=== PATIENT | female | born 1965 | race Caucasian/White ===

== ENCOUNTER 2017-09-04 18:37 | Emergency (ER) | payer MEDICAID ==
[~2017-09-04] VITALS: Ht 154.9 cm; Wt 94.3 kg
[~2017-09-04 18:37] MED LIST: ALBU0.0939
[2017-09-04 18:50] VITALS: BP_SYST 1; BP_SYST 134; BP_DIAS 52
--- NOTE | 2017-09-04 19:19 | NUR ---
PT COMES TO ED C/O LEFT SIDED NUMBNESS FOR 1 WEEK. PT DENIES INJURY. DENIES N/V/DIZZINESS OR SOB. PT IS AXO X4, SMILING AND LAUGHING, MAKING JOKES. PT PLACED ON ALL MONITORS, VSS. EKG IN PROGRESS. MD LEIGH NOTIFIED OF PT STATUS
--- NOTE | 2017-09-04 20:12 | NUR ---
RECEIVED REPORT FROM MARIN NORTH. PT RESTING COMFORTABLY, RR EVEN AND UNLABORED. ALL NEEDS MET.
--- NOTE | 2017-09-04 21:16 | NUR ---
Patient appears to be resting comfortably in bed. Vital Signs within normal limits. Respirations even and unlabored. ALL NEEDS MET AT THIS TIME.
[2017-09-04 22:27] VITALS: BP 134/65
== END 2017-09-04 22:29 | disposition home or self-care (01) ==
LOC: MED 18:37
DX: R07.89 Other chest pain (principal); J45.909 Unspecified asthma, uncomplicated; F17.210 Nicotine dependence, cigarettes, uncomplicated
CPT/HCPCS: 70450; 82948; 99284

== ENCOUNTER 2018-04-09 09:22 | Emergency (ER) | payer MEDICAID ==
[~2018-04-09] VITALS: Ht 160 cm; Wt 92.7 kg
[2018-04-09 09:26] VITALS: BP 140/77
[2018-04-09 10:44] VITALS: BP 145/73
== END 2018-04-09 10:42 | disposition home or self-care (01) ==
LOC: MED 09:22
DX: R07.89 Other chest pain (principal); M62.830 Muscle spasm of back; J45.909 Unspecified asthma, uncomplicated; R03.0 Elevated blood-pressure reading, without diagnosis of hypertension; F17.210 Nicotine dependence, cigarettes, uncomplicated; Z90.49 Acquired absence of other specified parts of digestive tract
CPT/HCPCS: 71045; 81002; 93005; 99284; Q0092

== ENCOUNTER 2018-04-10 16:51 | Emergency (ER) | payer MEDICAID ==
[~2018-04-10] VITALS: Ht 152.4 cm; Wt 92.2 kg
[2018-04-10 17:22] VITALS: BP 144/89
--- NOTE | 2018-04-10 20:21 | NUR ---
52/F CAME IN W C/O GENERALIZED HEADACHE, ANXIETY, SHAKINESS STARTED TODAY. DENIES TRAUMA/INJURY, VISUAL DISTURBANCES, DENIES DIZZINESS/SYNCOPE, FEVER/CHILLS, N/V/D. AOX4, GCS 15. 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 PMH: ASTHMA
--- NOTE | 2018-04-10 20:21 | NUR ---
Pt taken to bed 7.
[2018-04-10] MEDS ORDERED: NACL 0.9% 1,000 ML IV ONE (21:50)
[2018-04-10] MEDS ORDERED: KETOROLAC 30 MG/ML VIAL IVP ONE (21:50)
[2018-04-10] MEDS ORDERED: cefTRIAXone 1,000 MG VIAL ONE (22:13)
[2018-04-10 22:19] LABS: BASOPHILS % (AUTO) 0.6 % (0.0-2.0); EOSINOPHILS # (AUTO) 0.5 K/uL (0-0.4); EOSINOPHILS % (AUTO) 6.3 % (0.0-4.0); HEMATOCRIT 40.6 % (36-48); HEMOGLOBIN 13.2 g/dL (12.0-16.0); LYMPHOCYTES # (AUTO) 2.9 K/uL (2.5-16.5); LYMPHOCYTES % (AUTO) 33.6 % (20.5-51.1); MEAN CORPUSCULAR HEMOGLOBIN 29 pg (27-31); MEAN CORPUSCULAR HGB CONC 33 g/dL (33-37); MEAN CORPUSCULAR VOLUME 90.3 fL (80-94); MONOCYTES # (AUTO) 0.8 K/uL (0.8-1.0); MONOCYTES % (AUTO) 9.8 % (1.7-9.3); NEUTROPHILS # (AUTO) 4.3 K/uL (1.8-7.7); NEUTROPHILS % (AUTO) 49.7 % (42.2-75.2); PLATELET COUNT (AUTO) 281 K/uL (140-450); RED CELL DISTRIBUTION WIDTH 14.4 % (11.6-13.7); WHITE BLOOD COUNT (AUTO) 8.7 K/uL (4.8-10.8)
[2018-04-10 22:23] LABS: APPEARANCE,URINE HAZY (CLEAR); BILIRUBIN,URINE NEGATIVE (NEGATIVE); BLOOD, URINE 2+ (NEGATIVE); COLOR,URINE YELLOW (YELLOW); LEUKOCYTE ESTERASE ,URINE NEGATIVE (NEGATIVE); NITRITE, URINE NEGATIVE (NEGATIVE); UGLUCOSE NEGATIVE (NEGATIVE)
[2018-04-10 22:32] LABS: ANION GAP 12.5 (8-16); CARBON DIOXIDE 26.4 mmol/L (21-32); CREATININE 0.8 mg/dL (0.6-1.3); POTASSIUM 3.9 mmol/L (3.5-5.1)
[2018-04-10 22:38] LABS: ALBUMIN 3.7 g/dL (3.4-5.0); TOTAL BILIRUBIN 0.2 mg/dL (0.0-1.0)
[2018-04-10 22:39] LABS: RBC,URINE 3-10 (FEW) /HPF (0-5)
[2018-04-10 23:52] VITALS: BP 128/71
== END 2018-04-10 23:52 | disposition home or self-care (01) ==
LOC: MED 16:51
DX: N39.0 Urinary tract infection, site not specified (principal); J45.909 Unspecified asthma, uncomplicated; Z79.899 Other long term (current) drug therapy
CPT/HCPCS: 36415; 80053; 81001; 84484; 85025; 87086; 93005; 96365; 96375; 99284; J0696; J1885; 81025; J7030

== ENCOUNTER 2018-05-15 06:30 | Emergency (ER) | payer MEDICAID ==
[~2018-05-15] VITALS: Ht 152.4 cm; Wt 91.6 kg
[2018-05-15 06:45] VITALS: BP 139/42
[2018-05-15] MEDS: diphenhydrAMINE 50 MG/ML VIAL IM ONE (07:26)
[2018-05-15] MEDS: PROCHLORPERAZINE 10 MG/2 ML VIAL IM ONE (07:27)
[2018-05-15 08:39] VITALS: BP 128/68
== END 2018-05-15 08:39 | disposition home or self-care (01) ==
LOC: MED 06:30
DX: G44.209 Tension-type headache, unspecified, not intractable (principal); R11.2 Nausea with vomiting, unspecified; J45.909 Unspecified asthma, uncomplicated; Z79.899 Other long term (current) drug therapy
CPT/HCPCS: 96372; 99283; J0780; J1200

== ENCOUNTER 2018-09-23 16:14 | Emergency (ER) | payer MEDICAID ==
[~2018-09-23] VITALS: Ht 152.4 cm; Wt 94.1 kg
[2018-09-23 16:25] VITALS: BP 123/75
--- NOTE | 2018-09-23 16:30 | NUR ---
53 Y FEMALE BIB SELF C/O LATERAL LT THIGH PAIN X 3 DAYS. PER PT SHE HAD CHRONIC NUMBNESS ON HER LT THIGH X 2 YRS. PAIN /10. HURTS TO TOUCH. DENIES INJURY. AMBULATING TO BED W/O DIFFICULTY. -DEFORMITY. +CMS. VSS AT THIS TIME. AA0X4. PRIMARILY [place] SPEAKING. BED IS DOWN, LOCKED, BED RAILX 1, ERMD TO SEE PT. PMH- CHRONIC PAIN
--- NOTE | 2018-09-23 17:05 | NUR ---
DR ALMENDAREZ AT PT BEDSIDE
[2018-09-23 17:26] VITALS: BP 127/78
--- NOTE | 2018-09-23 17:26 | NUR ---
GABRIELA MARIO TRANSLATED TO [place]ORE[place]. Patient discharged with v/s stable. Written and verbal after care instructions given and explained. Patient alert, oriented and verbalized understanding of instructions. Ambulatory with steady gait. All questions addressed prior to discharge. ID band removed. Patient advised to follow up with PMD. Rx of NAPROXEN, PREDNISONE given. Patient educated on indication of medication including possible reaction and side effects. Opportunity to ask questions provided and answered. REFERED TO [facility].
== END 2018-09-23 17:26 | disposition home or self-care (01) ==
LOC: MED 16:14
DX: M54.32 Sciatica, left side (principal); M54.10 Radiculopathy, site unspecified; Z79.899 Other long term (current) drug therapy
CPT/HCPCS: 81025; 99283

== ENCOUNTER 2018-09-30 17:35 | Emergency (ER) | payer MEDICAID ==
[~2018-09-30] VITALS: Ht 152.4 cm; Wt 93.9 kg
[2018-09-30 17:40] VITALS: BP 139/97
--- NOTE | 2018-09-30 17:47 | NUR ---
PATIENT AMBULATED TO BED 7 AT THIS TIME.
--- NOTE | 2018-09-30 17:50 | NUR ---
53/F C/O AGATA THIGH PAIN X 5 DAYS. WAS SEEN BY [facility] ER MD 5 DAYS AGO WITH PREDNISOLONE PRESCRIPTION. PAIN 10 AT THIS TIME. DENIES PMH. PATIENT POSITIONED FOR COMFORT; HOB ELEVATED; BEDRAILS UP X1; BED DOWN. ER MD MADE AWARE OF PT STATUS.
[2018-09-30] MEDS ORDERED: KETOROLAC 30 MG/ML VIAL IM ONE (18:40)
--- NOTE | 2018-09-30 19:13 | NUR ---
Pt report given to KYLIE FUNES. Transfer of care at this time.
--- NOTE | 2018-09-30 19:13 | NUR ---
RECEIVED REPORT FROM MARIN DRIVER.
[2018-09-30 19:50] VITALS: BP 133/88
--- NOTE | 2018-09-30 19:50 | NUR ---
Patient discharged with v/s stable. Written and verbal after care instructions given and explained. Patient alert, oriented and verbalized understanding of instructions. Ambulatory with steady gait. All questions addressed prior to discharge. ID band removed. Patient advised to follow up with PMD. Rx of GABAPENTIN given. Patient educated on indication of medication including possible reaction and side effects. Opportunity to ask questions provided and answered.
== END 2018-09-30 19:50 | disposition home or self-care (01) ==
LOC: MED 17:35
DX: G62.9 Polyneuropathy, unspecified (principal); R07.89 Other chest pain; M51.36 Other intervertebral disc degeneration, lumbar region; Z79.899 Other long term (current) drug therapy
CPT/HCPCS: 72131; 93005; 96372; 99284; J1885

== ENCOUNTER 2018-10-07 16:20 | Emergency (ER) | payer MEDICAID ==
[~2018-10-07] VITALS: Ht 152.4 cm; Wt 95.3 kg
[2018-10-07 16:46] VITALS: BP 132/80
--- NOTE | 2018-10-07 17:00 | NUR ---
C/O INTERMITTENET LLQ PAIN 5/10 STARTING TODAY. PER PT, AFTER EATING BREAKFAST, THE PAIN STARTED. PT REPORTS HERNIA SURGERY 15 YEARS AGO TO THE AREA THAT IS CAUSING PAIN NOW. DENIES N/V/D; SKIN IS PINK/WARM/DRY; AAOX4 WITH EVEN AND STEADY GAIT; LUNGS CLEAR BL; HR EVEN AND REGULAR; PT DENIES ANY FEVER, CP, SOB, OR COUGH AT THIS TIME; VSS; PATIENT POSITIONED FOR COMFORT; HOB ELEVATED; BEDRAILS UP X1; BED DOWN. ER MD MADE AWARE OF PT STATUS. DAUGHTER IS AT BEDSIDE.
[2018-10-07 18:09] VITALS: BP 148/77
--- NOTE | 2018-10-07 18:11 | NUR ---
Patient discharged with v/s stable. Written and verbal after care instructions given and explained. Patient alert, oriented and verbalized understanding of instructions. Ambulatory with steady gait. All questions addressed prior to discharge. Patient advised to follow up with PMD. Rx of Dolores given. Patient educated on indication of medication including possible reaction and side effects. Opportunity to ask questions provided and answered.
== END 2018-10-07 18:11 | disposition home or self-care (01) ==
LOC: MED 16:20
DX: G62.9 Polyneuropathy, unspecified (principal); F17.210 Nicotine dependence, cigarettes, uncomplicated; Z79.899 Other long term (current) drug therapy
CPT/HCPCS: 99283

== ENCOUNTER 2018-12-29 15:49 | Emergency (ER) | payer MEDICAID ==
[~2018-12-29] VITALS: Ht 152.4 cm; Wt 95.3 kg
[2018-12-29 15:55] VITALS: BP 144/79
--- NOTE | 2018-12-29 16:05 | NUR ---
PT TRIAGED, SENT BACK TO LOBBY AWAITING BED
--- NOTE | 2018-12-29 16:16 | NUR ---
PATIENT AMBULATED TO BED 4 AT THIS TIME.
--- NOTE | 2018-12-29 16:30 | NUR ---
Note timothy in EDM - 12/29/18 at 1733 by [email or web address] C/O GENERALIZED ABD PAIN /10 AND LOWER BACK ACHING X 1 WEEK. PT DENIES VOMITING/DIARRHEA/DYSURIA. LBM TODAY- REGULAR PER PT. ABDOMEN SOFT/FLAT TENDER TO PALPATION. BED IN LOW POSITION, SIDE RAIL UP X1
--- NOTE | 2018-12-29 16:30 | NUR ---
C/O GENERALIZED ABD PAIN 8/10 AND LOWER BACK ACHING X 1 WEEK. PT DENIES VOMITING/DIARRHEA/DYSURIA. LBM TODAY- REGULAR PER PT. ABDOMEN SOFT/FLAT TENDER TO PALPATION. BOWEL SOUNDS PRESENT X1. SMALL LUNB FELT NEAR UMBILICAL REGION. BED IN LOW POSITION, SIDE RAIL UP X1
[2018-12-29] MEDS ORDERED: KETOROLAC 60 MG/2 ML VIAL IM ONE (16:35)
[2018-12-29] MEDS ORDERED: FAMOTIDINE 20 MG TAB PO ONE (16:35)
[2018-12-29] MEDS ORDERED: ALUMINUM HYD/MAG/SIMETHICONE 30 ML UDC PO ONE (16:35)
[2018-12-29 17:08] LABS: BASOPHILS % (AUTO) 0.5 % (0.0-2.0); EOSINOPHILS # (AUTO) 0.3 K/uL (0-0.4); EOSINOPHILS % (AUTO) 3.3 % (0.0-4.0); HEMOGLOBIN 12.7 g/dL (12.0-16.0); LYMPHOCYTES # (AUTO) 2.3 K/uL (2.5-16.5); LYMPHOCYTES % (AUTO) 26.9 % (20.5-51.1); MEAN CORPUSCULAR HEMOGLOBIN 30 pg (27-31); MEAN CORPUSCULAR HGB CONC 34 g/dL (33-37); MEAN CORPUSCULAR VOLUME 88.9 fL (80-94); MONOCYTES # (AUTO) 0.9 K/uL (0.8-1.0); MONOCYTES % (AUTO) 10.6 % (1.7-9.3); NEUTROPHILS # (AUTO) 5.1 K/uL (1.8-7.7); NEUTROPHILS % (AUTO) 58.7 % (42.2-75.2); PLATELET COUNT (AUTO) 251 K/uL (140-450); RED BLOOD CELL COUNT(AUTO) 4.27 MIL/uL (4.20-5.40); RED CELL DISTRIBUTION WIDTH 13.9 % (11.6-13.7); WHITE BLOOD COUNT (AUTO) 8.6 K/uL (4.8-10.8)
[2018-12-29 17:27] LABS: ANION GAP 14.3 (8-16); CARBON DIOXIDE 24.5 mmol/L (21-32); CREATININE 1.1 mg/dL (0.6-1.3); POTASSIUM 3.8 mmol/L (3.5-5.1)
[2018-12-29 17:39] LABS: ALBUMIN 3.5 g/dL (3.4-5.0); TOTAL BILIRUBIN 0.3 mg/dL (0.0-1.0)
[2018-12-29 18:35] VITALS: BP 124/74
--- NOTE | 2018-12-29 18:35 | NUR ---
Patient discharged with v/s stable. Written and verbal after care instructions given and explained. Patient alert, oriented and verbalized understanding of instructions. Ambulatory with steady gait. All questions addressed prior to discharge. ID band removed. Patient advised to follow up with PMD. Rx of ZOFRAN ODT, OMEPRAZOLE given. Patient educated on indication of medication including possible reaction and side effects. Opportunity to ask questions provided and answered.
== END 2018-12-29 18:35 | disposition home or self-care (01) ==
LOC: MED 15:49
DX: K29.70 Gastritis, unspecified, without bleeding (principal); F17.210 Nicotine dependence, cigarettes, uncomplicated; Z90.49 Acquired absence of other specified parts of digestive tract; Z98.890 Other specified postprocedural states; Z79.899 Other long term (current) drug therapy
CPT/HCPCS: 36415; 80053; 81025; 83690; 84484; 85025; 93005; 96372; 99284; J1885

== ENCOUNTER 2019-03-12 14:58 | Emergency (ER) | payer MEDICAID ==
[~2019-03-12] VITALS: Ht 152.4 cm; Wt 95.7 kg
[2019-03-12 15:06] VITALS: BP 134/79
[2019-03-12] MEDS ORDERED: SUMAtriptan 25 MG TAB PO ONE (15:25)
[2019-03-12] MEDS ORDERED: PROCHLORPERAZINE 10 MG/2 ML VIAL IVP ONE (16:05)
[2019-03-12] MEDS ORDERED: KETOROLAC 30 MG/ML VIAL IVP ONE (16:05)
[2019-03-12 17:01] VITALS: BP 134/79
== END 2019-03-12 17:02 | disposition home or self-care (01) ==
LOC: MED 14:58
DX: R51 Headache (principal); N64.4 Mastodynia; I10 Essential (primary) hypertension; Z79.899 Other long term (current) drug therapy
CPT/HCPCS: 70450; 96374; 96375; 99284; J0780; J1885

== ENCOUNTER 2019-04-25 16:31 | Emergency (ER) | payer MEDICAID ==
[~2019-04-25] VITALS: Ht 152.4 cm; Wt 93.9 kg
[2019-04-25 16:40] VITALS: BP 105/64
--- NOTE | 2019-04-25 16:45 | NUR ---
WAIT AT LOBBY.
--- NOTE | 2019-04-25 17:23 | NUR ---
PT AMBULATED TO ER BED 07
--- NOTE | 2019-04-25 17:43 | NUR ---
53/F C/O DIZZINESS & EPIGASTRIC/UMBILICAL/RT SIDED ABD PAIN X 1 MONTH WORSENING OVER LAST 1 WK. DENIES F/C, N/V. STATES BAD BREATH, ABD BLOATING, CONSTIPATION/HARD STOOLS OVER LAST 1 MONTH. LBM TODAY, HARD STOOL. ABD LARGE, ACTIVE BS. MED HX: ASTHMA, GERD
--- NOTE | 2019-04-25 18:01 | NUR ---
KEILA MILLS AT BEDSIDE
[2019-04-25] MEDS ORDERED: KETOROLAC 60 MG/2 ML VIAL IM ONE (18:15)
[2019-04-25] MEDS ORDERED: ALUMINUM HYD/MAG/SIMETHICONE 30 ML, DICYCLOMINE HCL LIQUID 20 MG, LIDOCAINE VISCOUS 2% ... PO ONE ×3 (18:15)
[2019-04-25] MEDS ORDERED: LIDOCAINE VISCOUS 2% 20 ML UDC ONE (18:31)
[2019-04-25] MEDS ORDERED: ALUMINUM HYD/MAG/SIMETHICONE 30 ML UDC ONE (18:32)
[2019-04-25] MEDS ORDERED: DICYCLOMINE HCL LIQUID 10 MG/5 ML UDC ONE (18:32)
--- NOTE | 2019-04-25 19:04 | NUR ---
report to Lola Roberts, transfer of care at this time.
--- NOTE | 2019-04-25 19:05 | NUR ---
RECIVED REPORT FROM YESSENIA FUNES.
--- NOTE | 2019-04-25 19:09 | NUR ---
XRAY AT BEDSIDE
--- NOTE | 2019-04-25 19:13 | NUR ---
LAB AT BEDSIDE.
--- NOTE | 2019-04-25 19:14 | NUR ---
PT AXO X4. RESPITATIONS ARE EVEN AND UNLABORED. SMIN IS WASRM AND DRY TO TOUCH. PT HAS C/O 2/10 ABD PAIN IN EPIGASTRIC, UMBILICAL, AND RLQ. PT C/O FEELING BLOATED AND HAVING CONSTIPATION X1 MONTH. PT STATES SHE HAD HER LAST BOWEL MOVEMENT 04/25/19. PT STATES IT WAS SMALL, HARD, AND NORMAL IN COLOR. PT DENIES N/V/D. ABD SOUND PRESENT X 4. PT RESTING IN BED, BED IN LOWEST POSITION AND LOCKED IN PLACE. WILL CONTINUE TO [facility].
[2019-04-25 19:38] LABS: BASOPHILS # (AUTO) 0.1 K/uL (0.00-0.22); EOSINOPHILS # (AUTO) 0.5 K/uL (0-0.4); EOSINOPHILS % (AUTO) 6.5 % (0.0-4.0); HEMATOCRIT 37.1 % (36-48); HEMOGLOBIN 12.4 g/dL (12.0-16.0); LYMPHOCYTES # (AUTO) 2.7 K/uL (2.5-16.5); LYMPHOCYTES % (AUTO) 36.3 % (20.5-51.1); MEAN CORPUSCULAR HEMOGLOBIN 30 pg (27-31); MEAN CORPUSCULAR HGB CONC 33 g/dL (33-37); MEAN CORPUSCULAR VOLUME 91.1 fL (80-94); MONOCYTES # (AUTO) 0.8 K/uL (0.8-1.0); MONOCYTES % (AUTO) 10.3 % (1.7-9.3); NEUTROPHILS # (AUTO) 3.4 K/uL (1.8-7.7); NEUTROPHILS % (AUTO) 45.9 % (42.2-75.2); PLATELET COUNT (AUTO) 246 K/uL (140-450); RED BLOOD CELL COUNT(AUTO) 4.07 MIL/uL (4.20-5.40); RED CELL DISTRIBUTION WIDTH 13.9 % (11.6-13.7); WHITE BLOOD COUNT (AUTO) 7.5 K/uL (4.8-10.8)
[2019-04-25 20:19] LABS: CARBON DIOXIDE 25.7 mmol/L (21-32); CREATININE 0.9 mg/dL (0.6-1.3); POTASSIUM 3.7 mmol/L (3.5-5.1)
[2019-04-25 20:22] LABS: ALBUMIN 3.5 g/dL (3.4-5.0); TOTAL BILIRUBIN 0.1 mg/dL (0.0-1.0)
[2019-04-25 20:35] LABS: APPEARANCE,URINE CLEAR (CLEAR); BILIRUBIN,URINE NEGATIVE (NEGATIVE); BLOOD, URINE 2+ (NEGATIVE); COLOR,URINE YELLOW (YELLOW); LEUKOCYTE ESTERASE ,URINE NEGATIVE (NEGATIVE); NITRITE, URINE NEGATIVE (NEGATIVE); UGLUCOSE NEGATIVE (NEGATIVE)
--- NOTE | 2019-04-25 20:42 | NUR ---
PT RESTING IN BED POSITIONED FOR COMFORT. DENIES ABD PAIN/N/V/D. RR EVEN AND UNLABORED. BED LOCKED AND IN LOW POSITION. VSS. WILL CONTINUE TO MONITOR.
[2019-04-25 20:47] VITALS: BP 123/59
--- NOTE | 2019-04-25 20:48 | NUR ---
Patient discharged with v/s stable. Written and verbal after care instructions given and explained. Patient alert, oriented and verbalized understanding of instructions. Ambulatory with steady gait. All questions addressed prior to discharge. ID band removed. Patient advised to follow up with PMD. Rx of ZOFRAN, PEPCID, AND BENTYL given. Patient educated on indication of medication including possible reaction and side effects. Opportunity to ask questions provided and answered.
[2019-04-25 20:52] LABS: WBC,URINE 0-5 /HPF (0-5)
== END 2019-04-25 20:48 | disposition home or self-care (01) ==
LOC: MED 16:31
DX: R10.13 Epigastric pain (principal); R11.0 Nausea; F17.210 Nicotine dependence, cigarettes, uncomplicated; Z90.49 Acquired absence of other specified parts of digestive tract; Z79.899 Other long term (current) drug therapy
CPT/HCPCS: 36415; 74018; 80053; 81001; 83690; 85025; 96372; 99284; J1885; Q0092

== ENCOUNTER 2019-09-01 21:07 | Inpatient (IN) | payer MEDICAID ==
[~2019-09-01] VITALS: Ht 152.4 cm; Wt 93.0 kg
[2019-09-01 21:10] VITALS: BP 114/71
--- NOTE | 2019-09-01 21:12 | NUR ---
PT TAKEN TO BED 11
--- NOTE | 2019-09-01 21:15 | NUR ---
PT AMBULATED TO BED 11, STEADY GAIT.
--- NOTE | 2019-09-01 21:16 | NUR ---
54 YO F BIB SELF FOR C/C OF 8/10 LEFT CHEST PAIN THAT BEGAN THIS AFTERNOON AT 2PM AFTER WORK. PT STATES THAT HER LEFT ARM AND LEFT LEG IS "NUMB AND TINGELING." PT DESCRIBES HER CHEST PAIN A TIGHT/PRESSURE. PT SAYS SHE TOOK IBUPROFEN FOR THE PAIN BUT EXPERIENCED NO RELIEF OF SYMPTOMS. S1S2 HEARD. LUNG SOUNDS CLEAR THROUGHOUT. LEFT RADIAL PULSE IS WEAK COMPARED TO RIGHT RADIAL PULSE THAT IS REGULAR. PEDAL PULSES EQUAL AND REGULAR. CAP REFILL <3. NO EDEMA NOTED. PT DENIES N/V/D, TRAVEL, COUGH, OR SOB. VSS. PATIENT PLACED ON BANQUET HOUSEPERSON. BED LOCKED AND IN LOWEST POSITION. SIDE RAILS X1. MED HX: ASTHMA NO RX NKA
--- NOTE | 2019-09-01 21:17 | NUR ---
PT PLACED ON 3 LEAD ECG AND PULSE OX.
--- NOTE | 2019-09-01 21:19 | NUR ---
Dr. Snow examining patient.
--- NOTE | 2019-09-01 21:24 | NUR ---
EKG BEING PERFORMED AT BEDSIDE
[2019-09-01] MEDS ORDERED: KETOROLAC 30 MG/ML VIAL IM/IVP ONE (21:25)
--- NOTE | 2019-09-01 21:35 | NUR ---
LAB AT BEDSIDE. IV STARTED. PT TOLERATED WELL. LABS DRAWN AND SENT TO LAB.
--- NOTE | 2019-09-01 21:47 | NUR ---
XR AT BEDSIDE.
[2019-09-01 21:54] LABS: BASOPHILS # (AUTO) 0.1 K/uL (0.00-0.22); BASOPHILS % (AUTO) 0.7 % (0.0-2.0); EOSINOPHILS # (AUTO) 0.6 K/uL (0-0.4); EOSINOPHILS % (AUTO) 7.2 % (0.0-4.0); HEMATOCRIT 36.2 % (36-48); HEMOGLOBIN 12.2 g/dL (12.0-16.0); LYMPHOCYTES # (AUTO) 2.7 K/uL (2.5-16.5); LYMPHOCYTES % (AUTO) 30.3 % (20.5-51.1); MEAN CORPUSCULAR HEMOGLOBIN 30 pg (27-31); MEAN CORPUSCULAR HGB CONC 34 g/dL (33-37); MEAN CORPUSCULAR VOLUME 89.5 fL (80-94); MONOCYTES # (AUTO) 0.8 K/uL (0.8-1.0); MONOCYTES % (AUTO) 9.4 % (1.7-9.3); NEUTROPHILS # (AUTO) 4.7 K/uL (1.8-7.7); NEUTROPHILS % (AUTO) 52.4 % (42.2-75.2); PLATELET COUNT (AUTO) 258 K/uL (140-450); RED BLOOD CELL COUNT(AUTO) 4.05 MIL/uL (4.20-5.40); RED CELL DISTRIBUTION WIDTH 13.9 % (11.6-13.7); WHITE BLOOD COUNT (AUTO) 8.9 K/uL (4.8-10.8)
[2019-09-01 22:26] LABS: ALBUMIN 3.6 g/dL (3.4-5.0); ANION GAP 11.1 (8-16); CARBON DIOXIDE 28.5 mmol/L (21-32); CREATININE 0.9 mg/dL (0.6-1.3); POTASSIUM 3.6 mmol/L (3.5-5.1); TOTAL BILIRUBIN 0.3 mg/dL (0.0-1.0)
[2019-09-01] MEDS ORDERED: ASPIRIN 81 MG TAB.CHEW PO ONE (23:00)
[2019-09-01] MEDS ORDERED: ACETAMINOPHEN 325 MG TAB PO PRN (23:15)
[2019-09-01] MEDS ORDERED: HYDROcodone/APAP 7.5/325 MG 1 TAB PO PRN (23:15)
[2019-09-01] MEDS ORDERED: ONDANSETRON 4 MG/2 ML VIAL IVP PRN (23:15)
[2019-09-01] MEDS ORDERED: NITROGLYCERIN 0.4 MG TAB SL PRN (23:15)
--- NOTE | 2019-09-01 23:15 | NUR ---
PT RESTING IN BED COMFORTBALY. EQUAL RISE AND FALL OF CHEST. CHEST PAIN CURRENTLY 09/04. ERMD MADE AWARE. SAFETY MEASURES IN PLACE.
--- NOTE | 2019-09-01 23:28 | NUR ---
Dr. Martins examining patient.
--- NOTE | 2019-09-01 23:34 | NUR ---
MD SAENZ AT BEDSIDE
[2019-09-01 23:56] LABS: MAGNESIUM 1.8 mg/dL (1.8-2.4); PHOSPHORUS 3.7 mg/dL (2.5-4.9); THYROID STIMULATING HORMONE 1.38 uIU/mL (0.34-3.74)
[2019-09-02 00:01] LABS: PROTHROMBIN TIME 9.1 secs (10.8-13.4)
[2019-09-02 00:10] VITALS: BP 151/62
--- NOTE | 2019-09-02 00:10 | NUR ---
RECEIVED PT FROM ER NURSE. PT CAME IN [facility] AND ABLE TO AMBULATE TO [facility] BED. NO SOB NOTED. PT BREATHING EVEN AND UNLABORED. IV SITE ON RAC 20G, PATENT, INTACT, AND ASYMPTOMATIC. SKIN INTACT, WARM AND DRY TO TOUCH. MRSA SWAB DONE, VS CHECKED, WITHIN PT'S BASELINE. PT C/P 6/10 CHEST PAIN. WILL MEDICATE. BOARD UPDATED. ORIENTED ROOM TO PT. BED IN LOW POSITION, CALL LIGHT WITHIN REACH.
--- NOTE | 2019-09-02 00:10 | NUR ---
Patient will be admitted to care of [facility]. Admited to TELE. Will go to room 106B. Belongings list completed. Report to MARIAM FUNES.
[2019-09-02] MEDS: NACL 0.9% 1,000 ML IV SCH ×2 (00:20→21:27)
--- NOTE | 2019-09-02 00:32 | NUR ---
GIVEN NORCO FOR CHEST PAIN 10/05. PT TOLERATED WELL.
[2019-09-02 01:40] LABS: APPEARANCE,URINE CLEAR (CLEAR); BILIRUBIN,URINE NEGATIVE (NEGATIVE); BLOOD, URINE 1+ (NEGATIVE); COLOR,URINE YELLOW (YELLOW); LEUKOCYTE ESTERASE ,URINE NEGATIVE (NEGATIVE); NITRITE, URINE NEGATIVE (NEGATIVE); PH,URINE 5.5 (5.0-9.0); UGLUCOSE NEGATIVE (NEGATIVE)
[2019-09-02 01:50] LABS: BARBITURATE, URINE NEGATIVE ng/ml (NEG <=200); BENZODIAZEPINE, URINE NEGATIVE ng/mL (NEG <=200); COCAINE, URINE NEGATIVE ng/mL (NEG <=300)
[2019-09-02 01:51] LABS: CANNABINOID, URINE NEGATIVE ng/mL (NEG <=50); OPIATE, URINE NEGATIVE ng/mL (NEG <=2000); PHENCYCLIDINE SCREEN,URINE NEGATIVE ng/mL (NEG <=25)
[2019-09-02 01:59] LABS: WBC,URINE 0-5 /HPF (0-5)
--- NOTE | 2019-09-02 02:16 | NUR ---
PT SLEEPING IN BED COMFORTABLY. NO ACUTE DISTRESS NOTED.
[2019-09-02 04:00] VITALS: BP 105/47
--- NOTE | 2019-09-02 04:00 | NUR ---
VS CHECKED, WITHIN PT'S BASELINE. WILL CONTINUE TO MONITOR.
--- NOTE | 2019-09-02 06:50 | NUR ---
PT IN STABLE CONDITION. WILL ENDORSE PT TO DAY SHIFT NURSE FOR CONTINUOUS CARE.
[2019-09-02 07:13] LABS: BASOPHILS # (AUTO) 0.1 K/uL (0.00-0.22); BASOPHILS % (AUTO) 1.2 % (0.0-2.0); EOSINOPHILS # (AUTO) 0.8 K/uL (0-0.4); EOSINOPHILS % (AUTO) 11.5 % (0.0-4.0); HEMATOCRIT 35.1 % (36-48); HEMOGLOBIN 11.9 g/dL (12.0-16.0); LYMPHOCYTES # (AUTO) 2.5 K/uL (2.5-16.5); LYMPHOCYTES % (AUTO) 38.7 % (20.5-51.1); MEAN CORPUSCULAR HEMOGLOBIN 31 pg (27-31); MEAN CORPUSCULAR HGB CONC 34 g/dL (33-37); MEAN CORPUSCULAR VOLUME 90.1 fL (80-94); MONOCYTES # (AUTO) 0.7 K/uL (0.8-1.0); MONOCYTES % (AUTO) 10.5 % (1.7-9.3); NEUTROPHILS # (AUTO) 2.5 K/uL (1.8-7.7); NEUTROPHILS % (AUTO) 38.1 % (42.2-75.2); PLATELET COUNT (AUTO) 231 K/uL (140-450); RED CELL DISTRIBUTION WIDTH 13.9 % (11.6-13.7); WHITE BLOOD COUNT (AUTO) 6.6 K/uL (4.8-10.8)
--- NOTE | 2019-09-02 07:15 | NUR ---
RECEIVED REPORT FROM LAWN CARE PROFESSIONAL NURSE FOR CONTINUITY OF CARE. PT IS LYING IN BED SLEEPING, RT LATERAL. AROUSABLE TO VOICE. A&OX4. LAC 20G IV IS PATENT AND INTACT, AND RUNNING PER ORDERS. RESPIRATIONS ARE EVEN AND UNLABORED, BREATHING TO RA. REVIEWED PLAN OF CARE. TELE MONITOR ATTACHED. SAFETY MEASURES IN PLACE, CALL LIGHT WITHIN REACH, BED IN LOW POSITION. NO DISTRESS NOTED. WILL CONTINUE TO MONITOR.
[2019-09-02 08:00] VITALS: BP 110/60
[2019-09-02 08:27] LABS: CHOL/HDL RATIO 4.5 (1-4.5); MAGNESIUM 1.7 mg/dL (1.8-2.4); PHOSPHORUS 3.2 mg/dL (2.5-4.9)
[2019-09-02 08:35] LABS: ANION GAP 10.7 (8-16); CREATININE 0.9 mg/dL (0.6-1.3); POTASSIUM 3.7 mmol/L (3.5-5.1)
--- NOTE | 2019-09-02 08:55 | NUR ---
PATIENT HAS BEEN SCREENED AND CATEGORIZED MODERATE NUTRITION RISK. PATIENT WILL BE SEEN WITHIN 3-5 DAYS OF ADMISSION. 09/05/19 09/07/[address]
[2019-09-02] MEDS: METOPROLOL 25 MG TAB PO SCH ×2 (09:00→21:00)
--- NOTE | 2019-09-02 09:00 | NUR ---
DC PLANNIN YRS OLD FEMALE PATIENT WAS ADMITTED FROM HOME WITH A DX OF CHEST PAIN R/O ACS. PT HAS NO MEDICAL HISTORY. EKG SHOWED NO ACUTE ABNORMALITY SB 51 ,TROP NEGATIVE X2 AND PENDING THE 3RD , CXR SHOWED PROMINENT PULMONARY VASCULARITY. ECHO PENDING , CONTINUE HOME MEDS ADMINISTERED PAIN MEDS , CONSULT WITH MULTIMEDIA DESIGNER. DC PLAN TO GO HOME WHEN STABLE CM TO FOLLOW. Addendum: 09/03/19 at 1546 by Gale Gay CM ON ROOM AIR. CURRENT LABS INCLUDE WBC 6.3, H/H 11.8/35.6, NA/K 144/4.0, BUN/CREA 14/1.0. FOR HOMAR SCAN TODAY, IF CLEAR MAY DC.
[2019-09-02] MEDS: DOCUSATE SODIUM 100 MG GELCAP PO SCH ×2 (09:55→21:28)
[2019-09-02] MEDS: ASPIRIN 81 MG TAB.CHEW PO SCH (09:55)
[2019-09-02] MEDS: FAMOTIDINE 20 MG TAB PO SCH (09:56)
[2019-09-02] MEDS: LISINOPRIL 5 MG TAB PO SCH (10:03)
--- NOTE | 2019-09-02 10:09 | NUR ---
SCHEDULED MEDICATIONS GIVEN. BP CHECKED; BP: 110/60; HR: 57. RESIDENT INFORMED. PER THE DR, SCHEDULED LOPRESSOR HELD. MEDICATION EDUCATION PROVIDED IN DANISH, WITH PT VERBALIZING UNDERSTANDING. PT TOLERATED PO MEDS WELL. NO DISTRESS NOTED. SAFETY MEASURES IN PLACE. WILL CONTINUE TO MONITOR.
--- NOTE | 2019-09-02 10:33 | NUR ---
PT COMPLAINS OF LEFT EAR PAIN, RESIDENT IS AWARE. WILL CONTINUE TO MONITOR.
[2019-09-02 12:00] VITALS: BP 97/60
--- NOTE | 2019-09-02 15:03 | NUR ---
RESIDENT IS AT BEDSIDE SPEAKING WITH PT. NO DISTRESS NOTED. TELE MONITOR ATTACHED. WILL CONTINUE TO MONITOR.
[2019-09-02] MEDS ORDERED: REGADENOSON 0.4 MG/5 ML SYR IV ONE (15:35)
[2019-09-02 16:00] VITALS: BP 97/60
[2019-09-02] MEDS ORDERED: LORazepam 0.5 MG TAB PO PRN (16:25)
[2019-09-02] MEDS ORDERED: MAGNESIUM OXIDE 400 MG TAB PO SCH (16:38)
--- NOTE | 2019-09-02 17:12 | NUR ---
SCHEDULED MEDICATION GIVEN. PT COMPLAINS OF ANXIETY; PRN ATIVAN GIVEN. MEDICATION EDUCATION PROVIDED. WILL CONTINUE TO MONITOR.
--- NOTE | 2019-09-02 17:40 | NUR ---
RECEIVED A CALL FROM BRIANNA, FROM [facility]. PER BRIANNA, THE PT IS SCHEDULED FOR A STRESS TEST TOMORROW; NO MORE CAFFEINE SHOULD BE CONSUMED, AND PT SHOULD BE NPO AFTER BREAKFAST TOMORROW. BRIANNA SHOULD BE IN AROUND 12 PM, AND DR BISHOP IS EXPECTED TO BE IN AROUND 2 PM.
--- NOTE | 2019-09-02 19:36 | NUR ---
RECEIVED REPORT FROM LAUNCH MANAGER NURSE FOR CONTINUITY OF CARE. PT IS LYING IN BED SLEEPING, RT LATERAL. AROUSABLE TO VOICE. A&OX4. LAC 20G IV IS PATENT AND INTACT, AND RUNNING PER ORDERS. RESPIRATIONS ARE EVEN AND UNLABORED, BREATHING TO RA. REVIEWED PLAN OF CARE. TELE MONITOR ATTACHED. SAFETY MEASURES IN PLACE, CALL LIGHT WITHIN REACH, BED IN LOW POSITION. NO DISTRESS NOTED. WILL CONTINUE TO MONITOR.
--- NOTE | 2019-09-02 19:36 | NUR ---
ENDORSED TO AUTOMOTIVE QUALITY ENGINEER NURSE FOR CONTINUITY OF CARE. PT IS IN STABLE CONDITION.
[2019-09-02 20:00] VITALS: BP 99/40
[2019-09-02] MEDS ORDERED: ATORVASTATIN 20 MG TAB PO SCH (21:00)
--- NOTE | 2019-09-02 21:23 | NUR ---
METOPROLOL NOT GIVEN BECAUSE PT;S BP 44/40 MMHG AND HR= 60 ( HOLD FOR SBP LESS THAN 100; HR LESS THAN 600
--- NOTE | 2019-09-02 22:30 | NUR ---
PT LYING PRONE POSITION, HEART RATE FROM MONITOR 33 BPM, CHECKED ON PATIENT, AND PT WAS LYING ON HER TUMMY THAT THE GEOTECHNICAL OPERATING ENGINEER WAS PRESSED DOWN TO THE BED. EDUCATION GIVEN TO THE PATIENT.
[2019-09-03] VITALS: BP 93/51
--- NOTE | 2019-09-03 00:01 | NUR ---
AGAIN, PATIENT WAS ASLLEPP AND HEART RATE READING IN THE PROFESSOR OF POLITICAL SCIENCE WAS 40'S , WENT TO THE PATIENT AND PATIENT WAS SLEEPING AGAIN ON HER TUMMY, PT MADE AWARE, AND WENT TO SLEEPING RIGHT LATERAL, MONITOR READING WENT BACK TO NORMAL.
--- NOTE | 2019-09-03 01:35 | NUR ---
CHECKED ON PATIENT SLEEPING WELL, NO COMPLAINTS OF PAIN, NO RESPIRATORY DISTRESS WILL CONTINUE TO MONITOR
[2019-09-03 04:00] VITALS: BP 99/55
[2019-09-03 06:20] LABS: BASOPHILS % (AUTO) 0.5 % (0.0-2.0); EOSINOPHILS # (AUTO) 0.8 K/uL (0-0.4); EOSINOPHILS % (AUTO) 12.1 % (0.0-4.0); HEMATOCRIT 35.6 % (36-48); HEMOGLOBIN 11.8 g/dL (12.0-16.0); LYMPHOCYTES # (AUTO) 2.5 K/uL (2.5-16.5); LYMPHOCYTES % (AUTO) 39.6 % (20.5-51.1); MEAN CORPUSCULAR HEMOGLOBIN 30 pg (27-31); MEAN CORPUSCULAR HGB CONC 33 g/dL (33-37); MEAN CORPUSCULAR VOLUME 90.9 fL (80-94); MONOCYTES # (AUTO) 0.6 K/uL (0.8-1.0); MONOCYTES % (AUTO) 9.4 % (1.7-9.3); NEUTROPHILS # (AUTO) 2.4 K/uL (1.8-7.7); NEUTROPHILS % (AUTO) 38.4 % (42.2-75.2); PLATELET COUNT (AUTO) 233 K/uL (140-450); RED BLOOD CELL COUNT(AUTO) 3.92 MIL/uL (4.20-5.40); RED CELL DISTRIBUTION WIDTH 14.1 % (11.6-13.7); WHITE BLOOD COUNT (AUTO) 6.3 K/uL (4.8-10.8)
[2019-09-03 06:46] LABS: ANION GAP 8.7 (8-16); CARBON DIOXIDE 29.3 mmol/L (21-32)
[2019-09-03] MEDS ORDERED: BUS5 PO (07:14)
--- NOTE | 2019-09-03 07:15 | NUR ---
PATIENT INFORMED AGAIN NOT TO SLEEP ON THE SNUFF BOX FINISHER, BECAUSE HER HEART RATE, DIPPING DOWN. PT IS ASYMPTOMATIC.
--- NOTE | 2019-09-03 07:19 | NUR ---
RECEIVED REPORT FROM PROFESSIONAL FIGHTER NURSE FOR CONTINUITY OF CARE. PT IS A&OX4; LYING IN BED RESTING, RT LATERAL, AROUSABLE TO VOICE. LAC 2OG IV IS PATENT AND INTACT. RESPIRATIONS ARE EVEN AND UNLABORED, BREATHING TO RA. REVIEWED PLAN OF CARE WITH PATIENT. TELE MONITOR ATTACHED. SAFETY MEASURES IN PLACE, CALL LIGHT WITHIN REACH, BED IN LOW POSITION. NO DISTRESS NOTED. WILL CONTINUE TO MONITOR.
--- NOTE | 2019-09-03 07:57 | NUR ---
RECEIVED A CALL FROM BRIANNA FROM [employer]. PER BRIANNA, THE PT IS TO BE NPO AFTER BREAKFAST, AND IS TO HAVE NO COFFEE OR CAFFEINE. PT'S STRESS TEST IS SCHEDULED FOR TODAY. THE PT'S DECAF COFFEE WAS REMOVED FROM THE BREAKFAST TRAY. PT IS RESTING IN BED. NO DISTRESS NOTED. WILL CONTINUE TO MONITOR.
[2019-09-03 08:00] VITALS: BP 115/44
[2019-09-03] MEDS: LISINOPRIL 5 MG TAB PO SCH (09:00)
--- NOTE | 2019-09-03 09:36 | NUR ---
PT'S RT AC IV INFILTRATED. ER NURSE STARTED NEW IV; LAC 20 G. IV IS PATENT AND INTACT; FLUIDS RUNNING, PER ORDERS. SAFETY MEASURES IN PLACE. TELE MONITOR ATTACHED. WILL CONTINUE TO MONITOR.
[2019-09-03] MEDS: ASPIRIN 81 MG TAB.CHEW PO SCH (10:57)
[2019-09-03] MEDS: DOCUSATE SODIUM 100 MG GELCAP PO SCH (10:58)
[2019-09-03] MEDS: FAMOTIDINE 20 MG TAB PO SCH (10:58)
--- NOTE | 2019-09-03 11:00 | NUR ---
PT'S SCHEDULED MEDICATIONS GIVEN. MEDICATION EDUCATION PROVIDED IN HUNGARIAN. PT TOLERATED PO MEDS WELL. BP MEDS HELD DUE TO PT'S IMPENDING STRESS TEST TODAY. BP: 114/51; PULSE: 51. NO DISTRESS NOTED. TELE MONITOR ATTACHED. WILL CONTINUE TO MONITOR.
[2019-09-03 12:00] VITALS: BP 114/51
--- NOTE | 2019-09-03 12:43 | NUR ---
BRIANNA FROM [facility] WHEELED THE PT OFF OF THE UNIT IN A WHEELCHAIR, TO TAKE HER TO PERFORM THE STRESS TEST.
[2019-09-03] MEDS ORDERED: REGADENOSON 0.4 MG/5 ML SYR IV SCH (13:40)
[2019-09-03] MEDS: NACL 0.9% 1,000 ML IV SCH (15:12)
[2019-09-03 16:00] VITALS: BP 115/44
[2019-09-03] MEDS ORDERED: busPIRone 5 MG TAB PO SCH (16:00)
--- NOTE | 2019-09-03 16:31 | NUR ---
PT COMPLAINS OF ANXIETY. ORDERED BUSPAR GIVEN ONCE. PER RESIDENT DR, THE PT IS TO BE DISCHARGED TODAY. NO ACUTE DISTRESS NOTED.
--- NOTE | 2019-09-03 17:55 | NUR ---
DISCHARGE INSTRUCTIONS WERE GIVEN AND EXPLAINED WITH THE PT VERBALIZING UNDERSTANDING. PT'S ARM BANDS, THE TELE MONITOR, AND IV REMOVED, WITH CATHETER INTACT. PT'S BELONGINGS IN HER POSSESSION, ALONG WITH DISCHARGE PACKET. PT STATED THAT HER CAR IS IN THE PARKING LOT, AND SHE WILL DRIVE HERSELF HOME. SHE IS AMBULATORY, AND IN STABLE CONDITION. PT ESCORTED OUT TO LOBBY.
[2019-09-04] MEDS ORDERED: BUS5 PO (11:09)
== END 2019-09-03 17:55 | disposition home or self-care (01) | DRG 198 ==
LOC: MED 21:07 → MTU 23:12
PROVIDERS: ADMIT General Practice; ATTEND General Practice
DX: I24.9 Acute ischemic heart disease, unspecified (principal); E66.01 Morbid (severe) obesity due to excess calories; F41.9 Anxiety disorder, unspecified; Z68.41 Body mass index [BMI] 40.0-44.9, adult; E83.42 Hypomagnesemia; I10 Essential (primary) hypertension
CPT/HCPCS: 36415; 71045; 80048; 80053; 80305; 81001; 83036; 83690; 83735; 83880; 84100; 84443; 84484; 85025; 85610; 85730; 87081; 87086; 93005; 93017; 96374; 99285; A9500; A9502; J1644; J1885; J2785; J7030; Q0092

== ENCOUNTER 2020-02-23 11:40 | Emergency (ER) | payer MEDICAID ==
[~2020-02-23] VITALS: Ht 152.4 cm; Wt 94.3 kg
[~2020-02-23 11:40] MED LIST changes: +BUS5 PO
[2020-02-23 11:42] VITALS: BP 151/70
--- NOTE | 2020-02-23 12:01 | NUR ---
PATIENT PRESENTS TO ED WITH C/O HEADACHE X 3 DAYS . DENIES N/V/D; SKIN IS PINK/WARM/DRY; AAOX4 WITH EVEN AND STEADY GAIT; LUNGS CLEAR BL; HR EVEN AND REGULAR; PT DENIES ANY FEVER, CP, SOB, OR COUGH AT THIS TIME; PATIENT STATES PAIN OF 8/10 AT THIS TIME; VSS; PATIENT POSITIONED FOR COMFORT; HOB ELEVATED; BEDRAILS UP X2; BED DOWN. ER MD MADE AWARE OF PT STATUS. DENIES PHOTOPHOBIA
[2020-02-23] MEDS ORDERED: KETOROLAC 60 MG/2 ML VIAL IM ONE (12:35)
--- NOTE | 2020-02-23 13:10 | NUR ---
SWAB COLLECTED AND SENT TO LAB.
[2020-02-23 13:26] VITALS: BP 150/90
--- NOTE | 2020-02-23 13:26 | NUR ---
Patient discharged with v/s stable. Written and verbal after care instructions given and explained. Patient alert, oriented and verbalized understanding of instructions. Ambulatory with steady gait. All questions addressed prior to discharge. ID band removed. Patient advised to follow up with PMD. Rx of Naprosyn 500mg given. Patient educated on indication of medication including possible reaction and side effects. Work excuse provided up until 02/26/2020. Work excuse states patient cannot return to work until receiving Covid test results. Pt provided with number to hospital to call to obtain results in 48-72 hours. Opportunity to ask questions provided and answered.
== END 2020-02-23 13:26 | disposition home or self-care (01) ==
LOC: MED 11:40
DX: G44.209 Tension-type headache, unspecified, not intractable (principal); J45.909 Unspecified asthma, uncomplicated; Z20.828 Contact with and (suspected) exposure to other viral communicable diseases; Z79.899 Other long term (current) drug therapy
CPT/HCPCS: 81002; 81025; 96372; 99283; J1885; U0003

== ENCOUNTER 2020-10-08 16:58 | Emergency (ER) | payer MEDICAID ==
[~2020-10-08] VITALS: Ht 152.4 cm; Wt 95.3 kg
[2020-10-08 17:16] VITALS: BP 155/73
[2020-10-08] MEDS ORDERED: KETOROLAC 30 MG/ML VIAL IM ONE (18:00)
[2020-10-08] MEDS ORDERED: METH750T5 PO (18:12)
[2020-10-08] MEDS ORDERED: NAPR-54 PO (18:12)
[2020-10-08 19:16] VITALS: BP 155/73
== END 2020-10-08 19:16 | disposition home or self-care (01) ==
LOC: MED 16:58
DX: M54.5 Low back pain (principal); J45.909 Unspecified asthma, uncomplicated; Z79.899 Other long term (current) drug therapy
CPT/HCPCS: 81002; 96372; 99283; J1885

== ENCOUNTER 2020-11-07 17:46 | Emergency (ER) | payer MEDICAID ==
[~2020-11-07] VITALS: Ht 152.4 cm; Wt 95.3 kg
[~2020-11-07 17:46] MED LIST changes: +METH750T5 PO; +NAPR-54 PO
[2020-11-07 17:48] VITALS: BP 143/74
--- NOTE | 2020-11-07 17:57 | NUR ---
PASTORA. HANDED ON URINE CUP.
--- NOTE | 2020-11-07 18:43 | NUR ---
PT AMBLULATED TO BED 9
--- NOTE | 2020-11-07 18:57 | NUR ---
Dr. Walters is evaluating the patient at bedside.
--- NOTE | 2020-11-07 19:16 | NUR ---
AMBULATED WITH ASSIST TO ED #9, 55 Y/O FEMALE, HX OF CHRONIC BACK AND RIGHT KNEE PAIN, THINKS SHE PULLED HER BACK AT WORK, OTHERWISE NO OTHER KNOWN INJURY. WOKE THIS MORNING WITH SEVERE EXACERBATION OF LOW BACK AND RIGHT KNEE PAIN. HX OF THYROID DISORDER. DISTAL CMS INTACT, DENIES INCONTINENCE OF BOWEL OR BLADDER. BED LOW AND LOCKED, DR. PARIS FOR EXAM AND EVAL.
--- NOTE | 2020-11-07 19:17 | NUR ---
CARE ENDORSED TO SHOAIB FUNES
[2020-11-07] MEDS ORDERED: KETOROLAC 30 MG/ML VIAL IM ONE (19:25)
[2020-11-07] MEDS ORDERED: DEXAMETHASONE 10 MG/ML VIAL IM ONE (19:25)
--- NOTE | 2020-11-07 20:14 | NUR ---
PAIN LEVEL DECREASED. 07/05.
--- NOTE | 2020-11-07 20:46 | NUR ---
PT TAKEN TO XR VIA W/C.
--- NOTE | 2020-11-07 21:01 | NUR ---
PT RETURNED BACK FROM XR VIA W/C.
[2020-11-07] MEDS ORDERED: LIDO5CRE19 TP (22:35)
[2020-11-07 22:48] VITALS: BP 141/64
--- NOTE | 2020-11-07 22:48 | NUR ---
Patient discharged with v/s stable. Written and verbal after care instructions given and explained. Patient alert, oriented and verbalized understanding of instructions. Ambulatory with steady gait. All questions addressed prior to discharge. ID band removed. Patient advised to follow up with PMD. Rx of LIDOCAINE given. Patient educated on indication of medication including possible reaction and side effects. Opportunity to ask questions provided and answered.
== END 2020-11-07 22:48 | disposition home or self-care (01) ==
LOC: MED 17:46
DX: L03.90 Cellulitis, unspecified (principal); M54.5 Low back pain; M25.561 Pain in right knee; E07.9 Disorder of thyroid, unspecified; F17.200 Nicotine dependence, unspecified, uncomplicated; Z76.0 Encounter for issue of repeat prescription; Z79.899 Other long term (current) drug therapy
CPT/HCPCS: 73564; 81002; 96372; 99284; J1100; J1885

== ENCOUNTER 2020-11-26 23:18 | Emergency (ER) | payer MEDICAID, OTHER ==
[~2020-11-26] VITALS: Ht 152.4 cm; Wt 95.3 kg
[~2020-11-26 23:18] MED LIST changes: +LIDO5CRE19 TP
[2020-11-26 23:35] VITALS: BP_SYST 131; BP_SYST 153; BP_DIAS 83; BP_DIAS 90
--- NOTE | 2020-11-26 23:38 | NUR ---
TO LOBBY A/W BED AMBULATORY
[2020-11-27 00:19] LABS: BASOPHILS # (AUTO) 0.1 K/uL (0.00-0.22); BASOPHILS % (AUTO) 0.6 % (0.0-2.0); EOSINOPHILS # (AUTO) 0.3 K/uL (0-0.4); EOSINOPHILS % (AUTO) 3.2 % (0.0-4.0); HEMATOCRIT 37.9 % (36-48); HEMOGLOBIN 12.8 g/dL (12.0-16.0); LYMPHOCYTES # (AUTO) 2.1 K/uL (2.5-16.5); LYMPHOCYTES % (AUTO) 22.2 % (20.5-51.1); MEAN CORPUSCULAR HEMOGLOBIN 31 pg (27-31); MEAN CORPUSCULAR HGB CONC 34 g/dL (33-37); MEAN CORPUSCULAR VOLUME 90.6 fL (80-94); MONOCYTES # (AUTO) 0.8 K/uL (0.8-1.0); MONOCYTES % (AUTO) 8.2 % (1.7-9.3); NEUTROPHILS # (AUTO) 6.3 K/uL (1.8-7.7); NEUTROPHILS % (AUTO) 65.8 % (42.2-75.2); PLATELET COUNT (AUTO) 268 K/uL (140-450); RED BLOOD CELL COUNT(AUTO) 4.19 MIL/uL (4.20-5.40); RED CELL DISTRIBUTION WIDTH 14.1 % (11.6-13.7); WHITE BLOOD COUNT (AUTO) 9.5 K/uL (4.8-10.8)
[2020-11-27 00:38] LABS: ALBUMIN 3.5 g/dL (3.4-5.0); ANION GAP 15.8 (8-16); CARBON DIOXIDE 25.9 mmol/L (21-32); CREATININE 0.9 mg/dL (0.6-1.3); POTASSIUM 3.7 mmol/L (3.5-5.1); TOTAL BILIRUBIN 0.2 mg/dL (0.0-1.0)
--- NOTE | 2020-11-27 02:32 | NUR ---
To ED bed 11
[2020-11-27] MEDS ORDERED: KETOROLAC 60 MG/2 ML VIAL IM ONE (03:20)
[2020-11-27] MEDS ORDERED: IBUP-2213 PO (03:29)
[2020-11-27] MEDS ORDERED: OMEP40EC24 PO (03:29)
[2020-11-27] MEDS ORDERED: ONDA8TAB87 PO (03:29)
[2020-11-27 03:32] VITALS: BP 117/72
--- NOTE | 2020-11-27 03:33 | NUR ---
d/c withVSS. d/c education given. opportunity toask questions given and answered. rx of prilosec, motrin, and zofran given.
== END 2020-11-27 03:36 | disposition home or self-care (01) ==
LOC: MED 23:18
DX: R11.2 Nausea with vomiting, unspecified (principal); R10.13 Epigastric pain
CPT/HCPCS: 36415; 80053; 81002; 81025; 83690; 85025; 96372; 99283; J1885

== ENCOUNTER 2020-12-10 22:22 | Emergency (ER) | payer MEDICAID ==
[~2020-12-10] VITALS: Ht 152.4 cm; Wt 95.3 kg
[~2020-12-10 22:22] MED LIST changes: +IBUP-2213 PO; +OMEP40EC24 PO; +ONDA8TAB87 PO
[2020-12-10 22:42] VITALS: BP 140/57
--- NOTE | 2020-12-11 00:01 | NUR ---
PT AMBULATED TO BED #5
--- NOTE | 2020-12-11 00:15 | NUR ---
55 YO/F BIB SELF W COMPLAIN OF PRESSURE LIKE CHEST AND UPPER BACK DISCOMFORT WHEN BREATHING X2 HOURS AND FEELING TIRED. DENIES PAIN REPORTS 0/10 AND SAYS ITS NOT PAIN ITS DISCOMFORT. PATIENT DENIES FEVERS, N/V/D OR DIZZYNESS. PATIENT CONNECTED TO MONITOR W VSS. BREATHING EVEN AND UNLABORED, NAD NOTED. WILL CONTINUE TO MONITOR. PATIENT LAYING IN BED LOCKED IN LOWEST POSITION, X1 SIDERAIL UP. PMH:HYPERTHYROIDSIM NKA
[2020-12-11 00:43] LABS: ALBUMIN 3.3 g/dL (3.4-5.0); ANION GAP 11.9 (8-16); CARBON DIOXIDE 27.4 mmol/L (21-32); POTASSIUM 3.3 mmol/L (3.5-5.1); TOTAL BILIRUBIN 0.1 mg/dL (0.0-1.0)
[2020-12-11] MEDS ORDERED: POTASSIUM CHLORIDE 10 MEQ TABER PO ONE (01:05)
[2020-12-11 01:15] LABS: BASOPHILS # (AUTO) 0.1 K/uL (0.00-0.22); BASOPHILS % (AUTO) 0.6 % (0.0-2.0); EOSINOPHILS # (AUTO) 0.2 K/uL (0-0.4); EOSINOPHILS % (AUTO) 1.5 % (0.0-4.0); HEMATOCRIT 36.5 % (36-48); HEMOGLOBIN 12.3 g/dL (12.0-16.0); LYMPHOCYTES # (AUTO) 3.2 K/uL (2.5-16.5); LYMPHOCYTES % (AUTO) 30.7 % (20.5-51.1); MEAN CORPUSCULAR HEMOGLOBIN 31 pg (27-31); MEAN CORPUSCULAR HGB CONC 34 g/dL (33-37); MEAN CORPUSCULAR VOLUME 90.9 fL (80-94); MONOCYTES # (AUTO) 1.1 K/uL (0.8-1.0); MONOCYTES % (AUTO) 10.4 % (1.7-9.3); NEUTROPHILS # (AUTO) 5.9 K/uL (1.8-7.7); NEUTROPHILS % (AUTO) 56.8 % (42.2-75.2); PLATELET COUNT (AUTO) 252 K/uL (140-450); RED BLOOD CELL COUNT(AUTO) 4.01 MIL/uL (4.20-5.40); RED CELL DISTRIBUTION WIDTH 14.1 % (11.6-13.7); WHITE BLOOD COUNT (AUTO) 10.4 K/uL (4.8-10.8)
[2020-12-11 02:21] VITALS: BP 127/62
--- NOTE | 2020-12-11 02:21 | NUR ---
Patient discharged with v/s stable. Written and verbal after care instructions given and explained. Patient verbalized understanding. Ambulatory with steady gait. All questions addressed prior to discharge. Advised to follow up with PMD.
== END 2020-12-11 02:21 | disposition home or self-care (01) ==
LOC: MED 22:22
DX: R07.2 Precordial pain (principal); F17.210 Nicotine dependence, cigarettes, uncomplicated; E07.9 Disorder of thyroid, unspecified; Z79.899 Other long term (current) drug therapy; Z71.6 Tobacco abuse counseling
CPT/HCPCS: 36415; 71045; 80053; 83880; 84484; 85025; 93005; 99285

== ENCOUNTER 2021-01-12 10:58 | Emergency (ER) | payer MEDICAID ==
[~2021-01-12] VITALS: Ht 152.4 cm; Wt 95.3 kg
[2021-01-12 11:04] VITALS: BP 125/76
--- NOTE | 2021-01-12 11:10 | NUR ---
PATIENT SENT TO LOBBY TO WAIT FOR AVAILABLE BED.
[2021-01-12 11:38] LABS: BASOPHILS % (AUTO) 0.5 % (0.0-2.0); EOSINOPHILS # (AUTO) 0.2 K/uL (0-0.4); EOSINOPHILS % (AUTO) 2.4 % (0.0-4.0); HEMATOCRIT 39.8 % (36-48); HEMOGLOBIN 13.2 g/dL (12.0-16.0); LYMPHOCYTES # (AUTO) 1.6 K/uL (2.5-16.5); LYMPHOCYTES % (AUTO) 19.5 % (20.5-51.1); MEAN CORPUSCULAR HEMOGLOBIN 31 pg (27-31); MEAN CORPUSCULAR HGB CONC 33 g/dL (33-37); MONOCYTES # (AUTO) 0.5 K/uL (0.8-1.0); MONOCYTES % (AUTO) 6.1 % (1.7-9.3); NEUTROPHILS % (AUTO) 71.5 % (42.2-75.2); PLATELET COUNT (AUTO) 272 K/uL (140-450); RED BLOOD CELL COUNT(AUTO) 4.33 MIL/uL (4.20-5.40); RED CELL DISTRIBUTION WIDTH 14.4 % (11.6-13.7); WHITE BLOOD COUNT (AUTO) 8.3 K/uL (4.8-10.8)
[2021-01-12 12:00] LABS: ALBUMIN 3.6 g/dL (3.4-5.0); ANION GAP 12.1 (8-16); CARBON DIOXIDE 26.7 mmol/L (21-32); POTASSIUM 3.8 mmol/L (3.5-5.1); TOTAL BILIRUBIN 0.2 mg/dL (0.0-1.0)
--- NOTE | 2021-01-12 14:01 | NUR ---
UA sample collected, handed to CPT. Debra
[2021-01-12 14:13] LABS: APPEARANCE,URINE CLEAR (CLEAR); BILIRUBIN,URINE NEGATIVE (NEGATIVE); BLOOD, URINE 2+ (NEGATIVE); COLOR,URINE YELLOW (YELLOW); LEUKOCYTE ESTERASE ,URINE NEGATIVE (NEGATIVE); NITRITE, URINE NEGATIVE (NEGATIVE); UGLUCOSE NEGATIVE (NEGATIVE)
[2021-01-12 14:39] LABS: RBC,URINE 11-20 (MOD) /HPF (0-5); WBC,URINE 0-5 /HPF (0-5)
[2021-01-12] MEDS ORDERED: CEFP200T20 PO (14:51)
[2021-01-12 15:08] VITALS: BP 147/93
--- NOTE | 2021-01-12 15:08 | NUR ---
NO NURSING INTERVENTIONS PROVIDED
--- NOTE | 2021-01-12 15:09 | NUR ---
Patient discharged with v/s stable. Written and verbal after care instructions given and explained. Patient alert, oriented and verbalized understanding of instructions. Ambulatory with steady gait. All questions addressed prior to discharge. ID band removed. Patient advised to follow up with PMD. Rx of CEFPODOXIME PROXETIL given. Patient educated on indication of medication including possible reaction and side effects. Opportunity to ask questions provided and answered.
== END 2021-01-12 15:09 | disposition home or self-care (01) ==
LOC: MED 10:58
DX: N39.0 Urinary tract infection, site not specified (principal); E07.9 Disorder of thyroid, unspecified; Z79.899 Other long term (current) drug therapy
CPT/HCPCS: 36415; 80053; 81001; 83690; 84703; 85025; 99284

== ENCOUNTER 2021-01-21 14:50 | Emergency (ER) | payer MEDICAID ==
[~2021-01-21] VITALS: Ht 152.4 cm; Wt 94.3 kg
[~2021-01-21 14:50] MED LIST changes: +CEFP200T20 PO
[2021-01-21 14:51] VITALS: BP 137/83
--- NOTE | 2021-01-21 14:55 | NUR ---
Patient ambulated to bed 06 with steady/even gait
--- NOTE | 2021-01-21 15:02 | NUR ---
Pt to restroom for urine sample
--- NOTE | 2021-01-21 15:05 | NUR ---
55 y/o F BIB self from home c/o abdominal pain x 1 week. Patient A&Ox4 and ambulatory states RUQ, epigastric pain 10/10, cramping/intermittent, radiating to low back. Patient states associated chills, nausea, weakness. Patient reports seen here one week ago, diagnosed with UTI and discharged with ABX without relief to symptoms. Patient denies fever, chest pain, vomiting, diarrhea, constipation, dysuria, urinary symptoms. Pt placed into a gown and UA collected. Bed locked in lowest position, side rails x 1. PMH: hyperthyroidism Sx: cholecystectomy Meds: Ibuprofen NKA
--- NOTE | 2021-01-21 15:05 | NUR ---
Dr. Contreras is evaluating patient at bedside
[2021-01-21 15:18] LABS: BASOPHILS # (AUTO) 0.1 K/uL (0.00-0.22); BASOPHILS % (AUTO) 0.8 % (0.0-2.0); EOSINOPHILS # (AUTO) 0.3 K/uL (0-0.4); EOSINOPHILS % (AUTO) 3.9 % (0.0-4.0); HEMATOCRIT 40.6 % (36-48); HEMOGLOBIN 13.6 g/dL (12.0-16.0); LYMPHOCYTES # (AUTO) 2.3 K/uL (2.5-16.5); MEAN CORPUSCULAR HEMOGLOBIN 31 pg (27-31); MEAN CORPUSCULAR HGB CONC 34 g/dL (33-37); MEAN CORPUSCULAR VOLUME 91.2 fL (80-94); MONOCYTES # (AUTO) 0.7 K/uL (0.8-1.0); MONOCYTES % (AUTO) 9.9 % (1.7-9.3); NEUTROPHILS # (AUTO) 3.9 K/uL (1.8-7.7); NEUTROPHILS % (AUTO) 53.4 % (42.2-75.2); PLATELET COUNT (AUTO) 278 K/uL (140-450); RED BLOOD CELL COUNT(AUTO) 4.45 MIL/uL (4.20-5.40); WHITE BLOOD COUNT (AUTO) 7.3 K/uL (4.8-10.8)
[2021-01-21 15:20] LABS: APPEARANCE,URINE CLEAR (CLEAR); BILIRUBIN,URINE NEGATIVE (NEGATIVE); BLOOD, URINE 2+ (NEGATIVE); COLOR,URINE YELLOW (YELLOW); LEUKOCYTE ESTERASE ,URINE NEGATIVE (NEGATIVE); NITRITE, URINE NEGATIVE (NEGATIVE); UGLUCOSE NEGATIVE (NEGATIVE)
[2021-01-21] MEDS ORDERED: DICYCLOMINE 10 MG CAP PO ONE (15:20)
[2021-01-21] MEDS ORDERED: ACETAMINOPHEN EXTRA STRENGTH 500 MG TAB PO ONE (15:20)
[2021-01-21] MEDS ORDERED: ALUMINUM HYD/MAG/SIMETHICONE 30 ML UDC PO ONE (15:20)
[2021-01-21] MEDS ORDERED: FAMOTIDINE 20 MG/2 ML VIAL IVP ONE (15:20)
[2021-01-21 15:25] LABS: RBC,URINE 11-20 (MOD) /HPF (0-5); WBC,URINE 0-5 /HPF (0-5)
[2021-01-21 15:29] LABS: ALBUMIN 3.8 g/dL (3.4-5.0); ANION GAP 13.8 (8-16); CARBON DIOXIDE 26.6 mmol/L (21-32); CREATININE 1.1 mg/dL (0.6-1.3); POTASSIUM 4.4 mmol/L (3.5-5.1); TOTAL BILIRUBIN 0.1 mg/dL (0.0-1.0)
--- NOTE | 2021-01-21 16:03 | NUR ---
Patient presents with both eyes closed resting in semi-fowlers position. Patient awaken for pain reassessment; reports positive relief to pain; rates 6/10 at this time. Denies nausea. All pt needs met.
[2021-01-21] MEDS ORDERED: ALUM355S59 PO (16:18)
[2021-01-21] MEDS ORDERED: FAMO-90 PO (16:18)
--- NOTE | 2021-01-21 16:33 | NUR ---
Patient discharged with v/s stable. Written and verbal after care instructions given and explained. Patient alert, oriented and verbalized understanding of instructions. Ambulatory with steady gait. All questions addressed prior to discharge. ID band removed. Patient advised to follow up with PMD. Rx of Mag Hydrox/Al Hydrox/Simeth, Famotidine given. Patient educated on indication of medication including possible reaction and side effects. Opportunity to ask questions provided and answered.
[2021-01-21 16:38] VITALS: BP 109/57
== END 2021-01-21 16:33 | disposition home or self-care (01) ==
LOC: MED 14:50
DX: K29.70 Gastritis, unspecified, without bleeding (principal)
CPT/HCPCS: 36415; 80053; 81001; 83690; 85025; 93005; 96374; 99284; J3490

== ENCOUNTER 2021-02-01 18:18 | Emergency (ER) | payer MEDICAID ==
[~2021-02-01] VITALS: Ht 152.4 cm; Wt 95.3 kg
[~2021-02-01 18:18] MED LIST changes: +ALUM355S59 PO; +FAMO-90 PO
[2021-02-01 18:27] VITALS: BP 170/98
--- NOTE | 2021-02-01 18:41 | NUR ---
PT TAKEN TO ER BED 9.
--- NOTE | 2021-02-01 18:43 | NUR ---
EMT AT PT BEDSIDE FOR EKG.
--- NOTE | 2021-02-01 18:46 | NUR ---
PT TAKEN TO XR VIA W/C.
--- NOTE | 2021-02-01 18:52 | NUR ---
55 Y/O FEMALE C/O CHEST PAIN 12/05 DESCRIBES PRESSURE RADIATING TO LEFT SHOULDER & LEFT UPPER BACK X 2 HOURS. DENIES N/V, DENIES FEVER/CHILLS. PT STATES SHE RECEIVED 1ST DOSE OF ABX LAST FRIDAY. PMH: SYPHILIS NKA
--- NOTE | 2021-02-01 19:00 | NUR ---
PT TAKEN TO ER BED 9 VIA W/C.
--- NOTE | 2021-02-01 19:20 | NUR ---
GAVE REPORT TO MARIN WIGGINS. TRANSFER OF CARE AT THIS TIME.
[2021-02-01] MEDS ORDERED: KETOROLAC 30 MG/ML VIAL ONE (20:10)
[2021-02-01] MEDS ORDERED: KETOROLAC 30 MG/ML VIAL IM ONE (20:15)
--- NOTE | 2021-02-01 20:31 | NUR ---
Dr. Pitts examining patient.
[2021-02-01] MEDS ORDERED: LORazepam 1 MG TAB PO ONE (20:55)
[2021-02-01] MEDS ORDERED: DIAZ5TAB7 PO (21:33)
[2021-02-01 21:57] VITALS: BP 130/63
--- NOTE | 2021-02-01 21:57 | NUR ---
Patient discharged with v/s stable. Written and verbal after care instructions given and explained. Patient alert, oriented and verbalized understanding of instructions. Ambulatory with steady gait. All questions addressed prior to discharge. ID band removed. Patient advised to follow up with PMD. Rx of VALIUM given. Patient educated on indication of medication including possible reaction and side effects. Opportunity to ask questions provided and answered. PT. STATES HER NEIGHBOR WILL PICK HER UP FROM [facility].
== END 2021-02-01 21:57 | disposition home or self-care (01) ==
LOC: MED 18:18
DX: R07.89 Other chest pain (principal); F41.9 Anxiety disorder, unspecified; M79.10 Myalgia, unspecified site; E07.9 Disorder of thyroid, unspecified
CPT/HCPCS: 71046; 93005; 96372; 99283; J1885

== ENCOUNTER 2021-04-01 21:00 | Emergency (ER) | payer MEDICAID ==
[~2021-04-01] VITALS: Ht 152.4 cm; Wt 95.3 kg
[~2021-04-01 21:00] MED LIST changes: +DIAZ5TAB7 PO
[2021-04-01 21:11] VITALS: BP 149/73
[2021-04-01] MEDS ORDERED: KETOROLAC 60 MG/2 ML VIAL IM ONE (23:40)
--- NOTE | 2021-04-02 00:43 | NUR ---
ASSESEMENT COMPLETED BY NOHEMI
[2021-04-02 00:44] VITALS: BP 142/80
--- NOTE | 2021-04-02 00:47 | NUR ---
55 Y/0 BIB SELF WITH C/O OF HEADACHE. PT QUIETLY WAITING IN CHAIR. PAIN 5/10 BUT PAIN AFFECT IS NON-GRIMACING.
== END 2021-04-02 00:44 | disposition home or self-care (01) ==
LOC: MED 21:00
DX: G44.209 Tension-type headache, unspecified, not intractable (principal); F41.9 Anxiety disorder, unspecified; E07.9 Disorder of thyroid, unspecified; Z90.49 Acquired absence of other specified parts of digestive tract; Z79.899 Other long term (current) drug therapy
CPT/HCPCS: 96372; 99283; J1885

== ENCOUNTER 2021-04-04 21:09 | Emergency (ER) | payer MEDICAID ==
[~2021-04-04] VITALS: Ht 152.4 cm; Wt 97.5 kg
[2021-04-04 21:18] VITALS: BP 138/63
--- NOTE | 2021-04-04 21:35 | NUR ---
PATIENT TO BED 5 AMBULATORY
[2021-04-04] MEDS ORDERED: ASPIRIN 325 MG TAB PO ONE (21:40)
[2021-04-04] MEDS ORDERED: diazePAM 5 MG TAB PO ONE (21:50)
--- NOTE | 2021-04-04 21:50 | NUR ---
PT REFUSED VALIUM B/C SHE SAID SHE HAS TO DRIVE AND HAS NO RIDE BACK HOME.
[2021-04-04 22:27] LABS: BASOPHILS # (AUTO) 0.1 K/uL (0.00-0.22); EOSINOPHILS # (AUTO) 0.2 K/uL (0-0.4); EOSINOPHILS % (AUTO) 2.7 % (0.0-4.0); HEMATOCRIT 35.5 % (36-48); LYMPHOCYTES # (AUTO) 2.4 K/uL (2.5-16.5); LYMPHOCYTES % (AUTO) 34.3 % (20.5-51.1); MEAN CORPUSCULAR HEMOGLOBIN 30 pg (27-31); MEAN CORPUSCULAR HGB CONC 34 g/dL (33-37); MEAN CORPUSCULAR VOLUME 89.6 fL (80-94); MONOCYTES # (AUTO) 0.8 K/uL (0.8-1.0); MONOCYTES % (AUTO) 11.4 % (1.7-9.3); NEUTROPHILS # (AUTO) 3.6 K/uL (1.8-7.7); NEUTROPHILS % (AUTO) 50.6 % (42.2-75.2); PLATELET COUNT (AUTO) 258 K/uL (140-450); RED BLOOD CELL COUNT(AUTO) 3.96 MIL/uL (4.20-5.40); RED CELL DISTRIBUTION WIDTH 13.5 % (11.6-13.7); WHITE BLOOD COUNT (AUTO) 7.1 K/uL (4.8-10.8)
[2021-04-04 22:49] LABS: ALBUMIN 3.5 g/dL (3.4-5.0); ANION GAP 11.1 (8-16); CARBON DIOXIDE 27.7 mmol/L (21-32); CREATININE 1.1 mg/dL (0.6-1.3); POTASSIUM 3.8 mmol/L (3.5-5.1); TOTAL BILIRUBIN 0.2 mg/dL (0.0-1.0)
--- NOTE | 2021-04-04 23:10 | NUR ---
PT IS A 55 Y/O FEMALE BIB SELF FOR CHEST PAIN. PT STATES THAT HER LEFT CHEST HURTS. PAIN CAME ON TODAY AND IS 8/10 PAIN. PT STATES SHE HAS NO PRIOR MEDICAL HISTORY BUT IS OBESE. PT IS AX0X4 ALERT AND ORIENTATED. PT IS ABLE TO AMBULATE AND FOLLOW TASK . PT IS ONLY OCCITAN SPEAKING.
[2021-04-04] MEDS ORDERED: DIAZ5TAB7 PO (23:18)
[2021-04-04] MEDS ORDERED: KETOROLAC 30 MG/ML VIAL IM ONE (23:25)
--- NOTE | 2021-04-04 23:30 | NUR ---
Note timothy in EDM - 04/05/21 at 0506 by GABRIELLE PT IS A 55 Y/O BIB SELF FOR CHEST PAIN. PT STATES THAT HER LEFT CHEST HURTS. PAIN CAME ON TODAY AND IS 8/10 PAIN. PT STATES SHE HAS NO PRIOR MEDICAL HISTORY BUT IS OBESE. PT IS AX0X4 ALERT AND ORIENTATED. PT IS ABLE TO AMBULATE AND FOLLOW TASK
[2021-04-05 00:05] VITALS: BP 143/49
--- NOTE | 2021-04-05 00:05 | NUR ---
Patient discharged with v/s stable. Written and verbal after care instructions given and explained. Patient alert, oriented and verbalized understanding of instructions. Ambulatory with steady gait. All questions addressed prior to discharge. ID band removed. Patient advised to follow up with PMD. Rx of DIAZEPAM given. Opportunity to ask questions provided and answered.
== END 2021-04-05 00:05 | disposition home or self-care (01) ==
LOC: MED 21:09
DX: R07.89 Other chest pain (principal); E07.9 Disorder of thyroid, unspecified; Z90.49 Acquired absence of other specified parts of digestive tract; Z98.890 Other specified postprocedural states; Z79.899 Other long term (current) drug therapy
CPT/HCPCS: 36415; 71045; 80053; 83690; 84484; 85025; 93005; 96372; 99285; J1885; Q0092

== ENCOUNTER 2021-06-03 21:40 | Emergency (ER) | payer MEDICAID ==
[~2021-06-03] VITALS: Ht 152.4 cm; Wt 96.2 kg
[~2021-06-03 21:40] MED LIST changes: -DIAZ5TAB7 PO; +DIAZ5TAB8 PO
[2021-06-03 21:42] VITALS: BP 140/53
--- NOTE | 2021-06-03 22:18 | NUR ---
55 Y//O FEMALE BIB SELF, C/O OF CP RADIATING TO HER BACK. PATIENT PRESENTS TO ED WITH UNPRODUCTIVE COUGH TIGHTNESS IN HER JAW, CHEST, AND BACK, AND TREMORS. PT STATES SHE WAS SEEM X1 WEEK AGO AT [facility] FOR SAME AND WAS DIAGNOSED WITH PNEUMPNIA AND PRESCRIBED ABX. DENIES N/V/D; SKIN IS PINK/WARM/DRY; AAOX4 WITH EVEN AND STEADY GAIT; LUNGS CLEAR BL; HR EVEN AND REGULAR; PT DENIES ANY FEVER OR SOB AT THIS TIME; PATIENT STATES PAIN OF 10/10 AT THIS TIME; VSS; PATIENT POSITIONED FOR COMFORT; HOB ELEVATED; BEDRAILS UP X2; BED DOWN. ER MD MADE AWARE OF PT STATUS. DENIES PMH NKA MED: ABX FROM PREV DX
--- NOTE | 2021-06-03 22:30 | NUR ---
PT PLACED ON 2 L/MIN NASAL CANULA DUE TO PT REQUEST. PT STATES SHE WANTS OXYGEN BECAUSE SHE FEELS FATIGUED.
--- NOTE | 2021-06-03 22:40 | NUR ---
Dr. Martinez examining patient.
[2021-06-03] MEDS ORDERED: ASPIRIN 325 MG TAB PO ONE (23:10)
[2021-06-03] MEDS ORDERED: ACETAMINOPHEN EXTRA STRENGTH 500 MG TAB PO ONE (23:10)
[2021-06-03 23:26] LABS: BASOPHILS # (AUTO) 0.1 K/uL (0.00-0.22); BASOPHILS % (AUTO) 0.8 % (0.0-2.0); EOSINOPHILS # (AUTO) 0.2 K/uL (0-0.4); EOSINOPHILS % (AUTO) 2.2 % (0.0-4.0); HEMATOCRIT 35.6 % (36-48); HEMOGLOBIN 12.1 g/dL (12.0-16.0); LYMPHOCYTES # (AUTO) 2.4 K/uL (2.5-16.5); LYMPHOCYTES % (AUTO) 30.3 % (20.5-51.1); MEAN CORPUSCULAR HEMOGLOBIN 30 pg (27-31); MEAN CORPUSCULAR HGB CONC 34 g/dL (33-37); MEAN CORPUSCULAR VOLUME 88.7 fL (80-94); MONOCYTES # (AUTO) 0.9 K/uL (0.8-1.0); MONOCYTES % (AUTO) 11.6 % (1.7-9.3); NEUTROPHILS # (AUTO) 4.3 K/uL (1.8-7.7); NEUTROPHILS % (AUTO) 55.1 % (42.2-75.2); PLATELET COUNT (AUTO) 242 K/uL (140-450); RED BLOOD CELL COUNT(AUTO) 4.01 MIL/uL (4.20-5.40); RED CELL DISTRIBUTION WIDTH 13.8 % (11.6-13.7); WHITE BLOOD COUNT (AUTO) 7.8 K/uL (4.8-10.8)
[2021-06-03 23:49] LABS: ALBUMIN 3.6 g/dL (3.4-5.0); ANION GAP 13.3 (8-16); CARBON DIOXIDE 26.4 mmol/L (21-32); CREATININE 0.9 mg/dL (0.6-1.3); POTASSIUM 3.7 mmol/L (3.5-5.1); TOTAL BILIRUBIN 0.2 mg/dL (0.0-1.0)
--- NOTE | 2021-06-04 00:18 | NUR ---
SWABBED COLLECTED AND SENT TO LAB RECEIVED BY MOORE EIGHT SECTION BLOWER
--- NOTE | 2021-06-04 01:34 | NUR ---
PT TAKEN TO RADIOLOGY
[2021-06-04 02:38] VITALS: BP 128/48
== END 2021-06-04 02:39 | disposition home or self-care (01) ==
LOC: MED 21:40
DX: R07.89 Other chest pain (principal); Z20.822 Contact with and (suspected) exposure to COVID-19; E07.9 Disorder of thyroid, unspecified; Z90.49 Acquired absence of other specified parts of digestive tract; Z98.890 Other specified postprocedural states; Z79.899 Other long term (current) drug therapy
CPT/HCPCS: 36415; 71045; 80053; 84484; 85025; 93005; 99284

== ENCOUNTER 2021-12-29 20:11 | Emergency (ER) | payer MEDICAID, OTHER ==
[~2021-12-29] VITALS: Ht 152.4 cm; Wt 95.3 kg
[2021-12-29 20:19] VITALS: BP 156/74
--- NOTE | 2021-12-29 20:22 | NUR ---
Patient ambulated to bed 8.
--- NOTE | 2021-12-29 20:41 | NUR ---
Dr. Phillips examining patient.
[2021-12-29] MEDS ORDERED: KETOROLAC 30 MG/ML VIAL IM ONE (20:50)
--- NOTE | 2021-12-29 21:00 | NUR ---
56/F BIB SELF C/C FALL XTODAY . PER PATIENT SHE WAS AT [facility] , WHEN SHE GOT UP SHE FELT WEAK LIOST BALANCE AND HIT FLOOR. PATIENT STATED THAT HER LEFT FOOT 12/05. PATIENT DENIES LOC/N/V/VISION CHANGES/CP/SOB AT THIS TIME. PATIENT IS AAOX4, AMBULATORY. RR EVEN AND UNLABORED. DOESNT APPEAR TO BE IN DISTRESS. PATIENT PLACED IN BED AND GOWN. BED LOW AND LOCKED. ALL NEEDS MET. DENIES PMHX, RX NKA
[2021-12-29 21:02] LABS: BASOPHILS % (AUTO) 0.4 % (0.0-2.0); EOSINOPHILS # (AUTO) 0.6 K/uL (0-0.4); EOSINOPHILS % (AUTO) 5.6 % (0.0-4.0); HEMATOCRIT 37.1 % (36-48); HEMOGLOBIN 12.5 g/dL (12.0-16.0); LYMPHOCYTES # (AUTO) 2.7 K/uL (2.5-16.5); MEAN CORPUSCULAR HEMOGLOBIN 30 pg (27-31); MEAN CORPUSCULAR HGB CONC 34 g/dL (33-37); MEAN CORPUSCULAR VOLUME 89.2 fL (80-94); MONOCYTES # (AUTO) 0.9 K/uL (0.8-1.0); MONOCYTES % (AUTO) 9.2 % (1.7-9.3); NEUTROPHILS # (AUTO) 5.8 K/uL (1.8-7.7); NEUTROPHILS % (AUTO) 57.8 % (42.2-75.2); PLATELET COUNT (AUTO) 277 K/uL (140-450); RED BLOOD CELL COUNT(AUTO) 4.16 MIL/uL (4.20-5.40)
--- NOTE | 2021-12-29 21:06 | NUR ---
RAD AT BEDSIDE
--- NOTE | 2021-12-29 21:06 | NUR ---
LAB AT BEDSIDE
[2021-12-29 21:20] LABS: ALBUMIN 3.4 g/dL (3.4-5.0); ANION GAP 14.8 (8-16); ASPARTATE AMINOTRANSFERASE 16 U/L (15-37); CARBON DIOXIDE 24.8 mmol/L (21-32); CHLORIDE 106 mmol/L (98-107); GFR ARICAN-AMERICAN 74 mL/min (>90); GLUCOSE 82 mg/dL (74-106); POTASSIUM 3.6 mmol/L (3.5-5.1); SODIUM SERUM 142 mmol/L (136-145); TOTAL BILIRUBIN 0.2 mg/dL (0.0-1.0); UREA NITROGEN, BLOOD 12 mg/dL (7-18)
[2021-12-29 21:46] LABS: APPEARANCE,URINE CLEAR (CLEAR); BILIRUBIN,URINE NEGATIVE (NEGATIVE); BLOOD, URINE 1+ (NEGATIVE); COLOR,URINE YELLOW (YELLOW); LEUKOCYTE ESTERASE ,URINE NEGATIVE (NEGATIVE); NITRITE, URINE NEGATIVE (NEGATIVE); PH,URINE 5.5 (5.0-9.0); UGLUCOSE NEGATIVE (NEGATIVE)
[2021-12-29 21:55] LABS: BENZODIAZEPINE, URINE POSITIVE ng/mL (NEG <=200)
[2021-12-29 21:59] LABS: CANNABINOID, URINE NEGATIVE ng/mL (NEG <=50); COCAINE, URINE NEGATIVE ng/mL (NEG <=300); OPIATE, URINE NEGATIVE ng/mL (NEG <=2000); PHENCYCLIDINE SCREEN,URINE NEGATIVE ng/mL (NEG <=25)
[2021-12-29 22:00] LABS: BARBITURATE, URINE NEGATIVE ng/ml (NEG <=200)
[2021-12-29 22:23] LABS: RBC,URINE 0-5 /HPF (0-5); WBC,URINE 0-5 /HPF (0-5)
--- NOTE | 2021-12-29 22:31 | NUR ---
ERMD AT BEDSIDE
--- NOTE | 2021-12-29 22:31 | NUR ---
IV ESTABLISHED 20G RIGHT AC
--- NOTE | 2021-12-29 22:49 | NUR ---
PT TAKEN TO CT
--- NOTE | 2021-12-29 23:11 | NUR ---
PT RETURN FROM CT
--- NOTE | 2021-12-29 23:16 | NUR ---
LAB AT BEDSIDE
--- NOTE | 2021-12-29 23:38 | NUR ---
PATIENT C/O 11/04. AWARE
[2021-12-29] MEDS ORDERED: HYDROcodone/APAP 5/325 MG 1 TAB TAB PO ONE (23:40)
--- NOTE | 2021-12-29 23:48 | NUR ---
PATIETN MEDICATED PER ORDERS. TOLERATED WELL.
--- NOTE | 2021-12-30 04:29 | NUR ---
Dr. Pitts examining patient.
[2021-12-30] MEDS ORDERED: CYCL-711 PO (05:02)
[2021-12-30] MEDS ORDERED: NAPR-1704 PO (05:02)
[2021-12-30 05:05] VITALS: BP 136/50
--- NOTE | 2021-12-30 05:05 | NUR ---
Patient discharged with v/s stable. Written and verbal after care instructions given NONSPECIFIC CPand explained. Patient alert, oriented and verbalized understanding of instructions. Ambulatory with steady gait. All questions addressed prior to discharge. ID band removed. Patient advised to follow up with PMD. Rx of NAPROXEN, FELXERIL given.
--- NOTE | 2021-12-30 05:05 | NUR ---
IV removed, catheter intact and site benign. Applied folded 4x4 gauze and tape to stop bleeding.
--- NOTE | 2021-12-30 05:06 | NUR ---
The patient's care was reviewed and supervised by Lyn Staton RN.
== END 2021-12-30 05:05 | disposition home or self-care (01) ==
LOC: MED 20:11
DX: R07.9 Chest pain, unspecified (principal); M54.9 Dorsalgia, unspecified; M79.10 Myalgia, unspecified site; R53.1 Weakness; E07.9 Disorder of thyroid, unspecified; Z79.899 Other long term (current) drug therapy
CPT/HCPCS: 36415; 71045; 71275; 80053; 80305; 81001; 84484; 85025; 85379; 93005; 96372; 99285; G0482; J1885; Q0092; Q9967

== ENCOUNTER 2022-07-12 12:33 | Emergency (ER) | payer OTHER ==
[~2022-07-12] VITALS: Ht 152.4 cm; Wt 95.7 kg
[~2022-07-12 12:33] MED LIST changes: +CYCL-711 PO; +NAPR-1704 PO
[2022-07-12 12:45] VITALS: BP 120/75
--- NOTE | 2022-07-12 12:53 | NUR ---
pt unable to give urine sample at this time. urine cup provided.
[2022-07-12] MEDS ORDERED: ACETAMINOPHEN EXTRA STRENGTH 500 MG TAB PO ONE (14:25)
[2022-07-12 15:05] LABS: BILIRUBIN,URINE NEGATIVE (NEGATIVE); BLOOD, URINE 1+ (NEGATIVE); COLOR,URINE YELLOW (YELLOW); LEUKOCYTE ESTERASE ,URINE TRACE (NEGATIVE); NITRITE, URINE NEGATIVE (NEGATIVE); UGLUCOSE NEGATIVE (NEGATIVE)
[2022-07-12 15:17] LABS: APPEARANCE,URINE HAZY (CLEAR)
[2022-07-12] MEDS ORDERED: ACET-10509 PO (15:26)
--- NOTE | 2022-07-12 15:36 | NUR ---
Patient discharged with v/s stable. Written and verbal after care instructions FOR TENSION HEADACHE given and explained. Patient alert, oriented and verbalized understanding of instructions. Ambulatory with steady gait. All questions addressed prior to discharge. ID band removed. Patient advised to follow up with PMD. Rx of TYLENOL given. Patient educated on indication of medication including possible reaction and side effects. Opportunity to ask questions provided and answered.
[2022-07-12] MEDS ORDERED: CEPH-588 PO (15:42)
== END 2022-07-12 15:33 | disposition home or self-care (01) ==
LOC: MED 12:33
DX: N39.0 Urinary tract infection, site not specified (principal); R51.9 Headache, unspecified; E03.9 Hypothyroidism, unspecified; Z79.899 Other long term (current) drug therapy
CPT/HCPCS: 70450; 81001; 87086; 99284

== ENCOUNTER 2022-07-23 19:51 | Emergency (ER) | payer OTHER ==
[~2022-07-23] VITALS: Ht 152.4 cm; Wt 95.3 kg
[~2022-07-23 19:51] MED LIST changes: +ACET-10509 PO; +CEPH-588 PO
[2022-07-23 19:54] VITALS: BP 136/79
--- NOTE | 2022-07-23 20:04 | NUR ---
EKG BEING DONE IN TRIAGE
[2022-07-23 20:30] LABS: BASOPHILS # (AUTO) 0.1 K/uL (0.00-0.22); BASOPHILS % (AUTO) 0.6 % (0.0-2.0); EOSINOPHILS % (AUTO) 11.3 % (0.0-4.0); HEMATOCRIT 37.6 % (36-48); HEMOGLOBIN 12.6 g/dL (12.0-16.0); LYMPHOCYTES # (AUTO) 2.6 K/uL (2.5-16.5); LYMPHOCYTES % (AUTO) 29.4 % (20.5-51.1); MEAN CORPUSCULAR HEMOGLOBIN 30 pg (27-31); MEAN CORPUSCULAR HGB CONC 33 g/dL (33-37); MEAN CORPUSCULAR VOLUME 89.6 fL (80-94); MONOCYTES # (AUTO) 0.9 K/uL (0.8-1.0); MONOCYTES % (AUTO) 9.7 % (1.7-9.3); NEUTROPHILS # (AUTO) 4.3 K/uL (1.8-7.7); PLATELET COUNT (AUTO) 268 K/uL (140-450); RED CELL DISTRIBUTION WIDTH 14.1 % (11.6-13.7); WHITE BLOOD COUNT (AUTO) 8.8 K/uL (4.8-10.8)
[2022-07-23 20:40] LABS: ALBUMIN 3.4 g/dL (3.4-5.0); CREATININE 1.3 mg/dL (0.6-1.3); TOTAL BILIRUBIN 0.2 mg/dL (0.0-1.0)
--- NOTE | 2022-07-23 21:48 | NUR ---
MADDIE SWAB OBTAINED AND SENT TO LAB
[2022-07-23] MEDS ORDERED: IBUP-2213 PO (22:29)
[2022-07-23] MEDS ORDERED: LID5T TP (22:29)
[2022-07-23] MEDS ORDERED: KETOROLAC 15 MG/ML VIAL IM ONE (22:35)
[2022-07-23 22:40] VITALS: BP 136/79
--- NOTE | 2022-07-23 22:40 | NUR ---
Patient discharged. Written and verbal after care instructions given and explained. Patient alert, oriented and verbalized understanding of instructions. Ambulatory with steady gait. All questions addressed prior to discharge. ID band removed. Patient advised to follow up with PMD. Rx of Ibuprofen and Lidocaine Hyd given. Patient educated on indication of medication including possible reaction and side effects. Opportunity to ask questions provided and answered.
== END 2022-07-23 22:40 | disposition home or self-care (01) ==
LOC: MED 19:51
DX: R07.89 Other chest pain (principal); I10 Essential (primary) hypertension; Z20.822 Contact with and (suspected) exposure to COVID-19; E05.90 Thyrotoxicosis, unspecified without thyrotoxic crisis or storm; Z90.49 Acquired absence of other specified parts of digestive tract; Z98.890 Other specified postprocedural states; Z79.899 Other long term (current) drug therapy; Z79.2 Long term (current) use of antibiotics; Z79.1 Long term (current) use of non-steroidal anti-inflammatories (NSAID)
CPT/HCPCS: 36415; 71045; 80053; 83880; 84484; 85025; 87426; 93005; 96372; 99285; J1885

== ENCOUNTER 2023-12-31 17:12 | Emergency (ER) | payer OTHER ==
[~2023-12-31] VITALS: Ht 152.4 cm; Wt 95.8 kg
[~2023-12-31 17:12] MED LIST changes: -ACET-10509 PO; +ACET500T99 PO; +LID5T TP; +NAPR-337 PO; -NAPR-54 PO
[2023-12-31 18:45] VITALS: BP 114/60; PULSE 52; RESP 18; TEMP 97.6; O2SAT 99
[2023-12-31 21:19] VITALS: O2SAT 99
--- NOTE | 2023-12-31 21:19 | NUR ---
58YO F BIB SELF C.O CHEST PAIN TO LEFT CHEST WALL RADIATING TO BACK L SHOULDER AREA. OPT STATES PAIN L;EVEL 11/04. DENIES ANY OTHER SYMPTOMS ATT HIS TIME. VSS ON BEDSDIE MONITOR. CALL LIGHT WITHINR EACH. [facility] NK[facility] NO MED HX
[2023-12-31 21:33] LABS: BASOPHILS # (AUTO) 0.1 K/uL (0.00-0.22); BASOPHILS % (AUTO) 0.8 % (0.0-2.0); EOSINOPHILS # (AUTO) 0.6 K/uL (0-0.4); HEMATOCRIT 37.1 % (36-48); HEMOGLOBIN 12.2 g/dL (12.0-16.0); LYMPHOCYTES # (AUTO) 2.6 K/uL (2.5-16.5); LYMPHOCYTES % (AUTO) 35.3 % (20.5-51.1); MEAN CORPUSCULAR HEMOGLOBIN 30 pg (27-31); MEAN CORPUSCULAR HGB CONC 33 g/dL (33-37); MEAN CORPUSCULAR VOLUME 91.4 fL (80-94); MONOCYTES # (AUTO) 0.8 K/uL (0.8-1.0); MONOCYTES % (AUTO) 10.3 % (1.7-9.3); NEUTROPHILS # (AUTO) 3.4 K/uL (1.8-7.7); NEUTROPHILS % (AUTO) 45.6 % (42.2-75.2); PLATELET COUNT (AUTO) 218 K/uL (140-450); RED BLOOD CELL COUNT(AUTO) 4.06 MIL/uL (4.20-5.40); RED CELL DISTRIBUTION WIDTH 14.7 % (11.6-13.7); WHITE BLOOD COUNT (AUTO) 7.4 K/uL (4.8-10.8)
[2023-12-31] MEDS: KETOROLAC 30 MG/ML VIAL IVP ONE (21:34)
[2023-12-31] MEDS: methylPREDNISolone SS 125 MG/2 ML VIAL IVP ONE (21:37)
[2023-12-31 21:40] LABS: CALCIUM 9.4 mg/dL (8.5-10.1); CARBON DIOXIDE 27.2 mmol/L (21-32); CREATININE 0.9 mg/dL (0.6-1.3); POTASSIUM 4.2 mmol/L (3.5-5.1)
[2023-12-31 21:44] LABS: INR 0.97 (0.8-1.2); PARTIAL THROMBOPLASTIN TIME 24.2 secs (22-35.6); PROTHROMBIN TIME 10.2 secs (10.8-13.4)
[2023-12-31 21:49] LABS: ALANINE AMINOTRANSFERASE 28 U/L (12-78); ALBUMIN 3.3 g/dL (3.4-5.0); ALKALINE PHOSPHATASE 100 U/L (50-136); ASPARTATE AMINOTRANSFERASE 28 U/L (15-37); BILIRUBIN,DIRECT 0.1 mg/dL (0.0-0.3); TOTAL PROTEIN, SERUM 7.1 g/dL (6.4-8.2)
[2023-12-31 21:50] LABS: TOTAL BILIRUBIN 0.2 mg/dL (0.0-1.0)
[2024-01-01] MEDS ORDERED: MELO-176 PO (00:31)
[2024-01-01] MEDS ORDERED: CYCL-711 PO (00:31)
[2024-01-01 00:42] VITALS: BP 137/77; PULSE 81; RESP 16; TEMP 97.7; O2SAT 98
== END 2024-01-01 00:42 | disposition home or self-care (01) ==
LOC: MED 17:12
DX: R07.2 Precordial pain (principal); J45.909 Unspecified asthma, uncomplicated; E05.90 Thyrotoxicosis, unspecified without thyrotoxic crisis or storm; Z79.899 Other long term (current) drug therapy
CPT/HCPCS: 36415; 71045; 80048; 80076; 83880; 84484; 85025; 85610; 85730; 93005; 96374; 96375; 99285; J1885; J2919